=== PATIENT | female | born 1960 | race Caucasian/White ===

== ENCOUNTER → 2016-10-23 | Outpatient (CLI) | payer OTHER ==
--- NOTE | 2016-10-25 08:32 | MM ---
Reason for exam: screening (asymptomatic). Last mammogram was performed 1 year and 1 month ago. History: Patient is postmenopausal. Family history of breast cancer in 2 paternal aunts. Benign cyst aspiration of both breasts, 2002. Physical Findings: A clinical breast exam by your physician is recommended on an annual basis and results should be correlated with mammographic findings. MG 3D Screening Mammo W/Cad Bilateral CC and MLO view(s) were taken. Prior study comparison: October 04, 2015, bilateral MG 3d screening mammo w/cad. September 01, 2014, bilateral MG screening mammo w CAD. July 21, 2013, bilateral MG screening mammo w CAD. The breast tissue is heterogeneously dense. This may lower the sensitivity of mammography. There is no discrete abnormality. ASSESSMENT: Negative, BI-RAD 1 RECOMMENDATION: Routine screening mammogram of both breasts in 1 year. Manage patient on a clinical basis, right breast pain.
== END | disposition home or self-care (01) ==
LOC: RADMAMWWP 09:41
PROVIDERS: ATTEND Obstetrics & Gynecology
DX: Z12.31 Encounter for screening mammogram for malignant neoplasm of breast (principal); Z80.3 Family history of malignant neoplasm of breast
CPT/HCPCS: 77063; G0202

== ENCOUNTER → 2017-03-01 | Outpatient (CLI) | payer OTHER ==
--- NOTE | 2017-03-01 10:07 | BD ---
EXAMINATION TYPE: MG DEXA axial skeleton. DATE OF EXAM: 03/01/2017 COMPARISON: 10.05.2014 CLINICAL HISTORY: 56 YR OLD FEMALE....ICD-10 CODE: M89.9 DISORDER OF BONE Height: 66 Weight: 157 FRAX RISK QUESTIONS: Alcohol (3 or more units per day): NO Family History (Parent hip fracture): UNKNOWN Glucocorticoids (More than 3mos): NO (Ex: prednisone, prednisolone, methylprednisolone, dexamethasone, and hydrocortisone). History of Fracture in Adulthood: NO Secondary Osteoporosis: NO 1. Type 1 Diabetes: NO 2. Hyperthyroidism: NI 3. Menopause before 45: NO 4. Malnutrition: NO 5. Chronic liver disease: NO Rheumatoid Arthritis: NO Current Tobacco Use: NO RISK FACTORS HISTORY OF: Family History of Osteoporosis: UNKNOWN Active: YES Diet low in dairy products/other sources of calcium: SOMEWHAT LOW Postmenopausal woman: YES AT AGE 50 YRS OLD Hyperparathyroidism: NO Adrenal Insufficiency: NO MEDICATIONS: Additional Medications: CALTRATE PLUS D, REFLUX MEDS, CHOLESTEROL... Additional History: NONE TO NOTE EXAM MEASUREMENTS: Bone mineral densitometry was performed using the [email or web address] System. Bone mineral density as measured about the Lumbar spine is: ----- L1-L4(G/cm2): 1.176 T Score Values are as follows: ----- L1: 0.4 ----- L2: 0.1 ----- L3: 0.0 ----- L4: -0.7 ----- L1-L4: 0.0 Bone mineral density has: Decreased -3.1% since study of: 10.05.2014 Bone mineral density about the R hip (g/cm2): 0.854 Bone mineral density about the L hip (g/cm2): 0.916 T Score values are as follows: -----R Neck: -1.9 -----L Neck: -1.6 -----R Total: -1.2 -----L Total: -0.7 Bone mineral density has: Decreased -1.0% since study of: 10.05.2014 FRAX%'S: THERE IS A 8.6% CHANCE OF A MAJOR OSTEOPOROTIC FX AND A 1.0% FOR HIP FX....PROBABILITY OF FX IN 10 YRS TIME IMPRESSION: Osteopenia (T Score between -2.5 and -1 as noted by T score values There is slightly increased risk of fracture and the patient may be considered for treatment. Re-Screen 2-5 years. NOTE: T-SCORE=SD OF THE YOUNG ADULT MEAN.
== END | disposition home or self-care (01) ==
LOC: RADBDWWP 09:18
PROVIDERS: ATTEND Obstetrics & Gynecology
DX: M85.80 Other specified disorders of bone density and structure, unspecified site (principal)
CPT/HCPCS: 77080

== ENCOUNTER → 2017-05-10 | Outpatient (CLI) | payer OTHER ==
--- NOTE | 2017-05-11 04:38 | MR ---
EXAMINATION TYPE: MR knee LT wo con DATE OF EXAM: 05/10/2017 COMPARISON: Outside left knee x-ray April 24, 2017. HISTORY: Left knee pain x 3 mos, no trauma per patient. TECHNIQUE: Multiplanar, multisequence images of the knee is performed without IV contrast. FINDINGS: MEDIAL MENISCUS: Slight medial extrusion of the medial meniscus as seen on coronal images. Anterior h orn is intact without tear. There is fraying of posterior margin with oblique increased signal extend ing to inferior articular surface seen on sagittal image 25. LATERAL MENISCUS: Anterior and posterior horns are intact without tear. CRUCIATE LIGAMENTS: The anterior and posterior cruciate ligaments are intact and unremarkable. COLLATERAL LIGAMENTS: The medial collateral ligament and lateral collateral ligament complex are inta ct. Mild fluid signal surrounds the medial collateral ligament. EXTENSOR MECHANISM: Visualized quadriceps and patellar tendons are intact. EFFUSION: There is fairly moderate suprapatellar joint effusion. POPLITEAL CYST: There are small to moderate size popliteal/santizo cyst measuring 5.0 cm long axis sagi ttal image 22. TRICOMPARTMENT SPACES: There is moderate to advanced joint space loss patellofemoral compartment most prominent inferiorly. Mild joint space loss lateral and medial tibial femoral compartment is seen. N o significant spurring is present. CARTILAGE: There is some thinning of the articular cartilage along the medial posterior facet of the patellar pole. No full-thickness cartilaginous loss is present. BONE MARROW SIGNAL: No focal abnormal marrow signal is appreciated. OTHER: No additional significant abnormality is appreciated. IMPRESSION: 1. Oblique full thickness tear posterior horn medial meniscus. 2. Mild MCL sprain injury. 3. Moderate-sized suprapatellar joint effusion. 4. Mbegx-gc-gwggtrvu sized popliteal cyst. 5. Moderate to severe patellofemoral compartment joint space loss.
== END | disposition home or self-care (01) ==
LOC: RADMRIMAIN 14:58
PROVIDERS: ATTEND Orthopaedic Surgery
DX: S83.242A Other tear of medial meniscus, current injury, left knee, initial encounter (principal); S83.412A Sprain of medial collateral ligament of left knee, initial encounter; M71.22 Synovial cyst of popliteal space [Baker], left knee

== ENCOUNTER → 2017-06-20 | Outpatient (CLI) | payer OTHER ==
[2017-06-20 10:40] LABS: Basophils % (A) 1 %; Eosinophils # (A) 0.2 k/uL (0-0.7); Eosinophils % (A) 3 %; HCT 39.3 % (34.0-46.0); Lymphocytes # (A) 1.6 k/uL (1.0-4.8); Lymphocytes % (A) 25 %; MCH 29.5 pg (25.0-35.0); MCHC 33.2 g/dL (31.0-37.0); MCV 88.8 fL (80.0-100.0); Mean Platelet Volume 7.4; Monocytes # (A) 0.3 k/uL (0-1.0); Monocytes % (A) 5 %; Neutrophils # (A) 4.1 k/uL (1.3-7.7); Neutrophils % (A) 66 %; Platelet Count 244 k/uL (150-450); RBC 4.42 m/uL (3.80-5.40); RDW 13.4 % (11.5-15.5); WBC 6.2 k/uL (3.8-10.6)
[2017-06-20 10:48] LABS: Potassium 4.6 mmol/L (3.5-5.1)
== END | disposition home or self-care (01) ==
LOC: LABPAT 09:43
PROVIDERS: ATTEND Orthopaedic Surgery
DX: Z01.812 Encounter for preprocedural laboratory examination (principal); Z01.818 Encounter for other preprocedural examination; M23.92 Unspecified internal derangement of left knee
CPT/HCPCS: 36415; 80051; 85025; 93005

== ENCOUNTER 2017-07-05 10:14 | Day surgery (SDC) | payer OTHER ==
[2017-07-02 10:09] VITALS: BMI 28.0
--- NOTE | 2017-07-04 14:46 | HP ---
HISTORY AND PHYSICAL DATE OF SERVICE: 07/05/2017 Gina Kohli is a 57-year-old patient seen with progressive left knee pain. Treatment options were discussed. She elected to proceed with arthroscopy. Consent was obtained. PAST MEDICAL HISTORY: Hyperlipidemia. PAST SURGICAL HISTORY: Right shoulder arthroscopy, tubal ligation. DAILY MEDICATIONS: 1. Atorvastatin. 2. Gnqj-ccv-bmglztd vitamins. ALLERGIES: Are KEFLEX, CLINDAMYCIN, SULFA, BACTRIM. SOCIAL HISTORY: Patient denies current tobacco use. PHYSICAL EVALUATION OF THE LEFT KNEE: Her range of motion is 0 to 130 degrees. She has a mild effusion. There is tenderness along the medial joint line. Positive medial Denzel's. Ligaments are stable. Hip rotation is without pain. Distal neurovascular exam is intact. RADIOGRAPHS OF THE LEFT KNEE: Revealed mild osteoarthritis. An MRI of the left knee revealed medial meniscal tear, joint effusion and osteoarthritis. IMPRESSION: 1. Internal derangement, left knee with medial meniscal tear. 2. Left knee osteoarthritis. 3. Hyperlipidemia. PLAN: Left knee arthroscopy with partial meniscectomy and debridement. MMODL / IJN: [id number] /
[~2017-07-05 10:14] MED LIST: DEXAMETHASONE SOD PHOSPHATE 10 MG/ML 1 ML VIAL IV ONE; HYDROmorphone 0.5 MG/0.5 ML SYRINGE IVP PRN; LACTATED RINGERS 1,000 ML IV SCH; MIDAZOLAM 2 MG/2 ML VIAL IV PRN; MORPHINE SULFATE 4 MG/ML SYRINGE IV PRN; ONDANSETRON 4 MG/2 ML VIAL IVP ONE; VANCOMYCIN 1,000 MG in SODIUM CHLORIDE 0.9% 250 ML IVPB ONE
[2017-07-05] MEDS ORDERED: LIDOCAINE 1% 20 ML VIAL (10MG/ML) FOR IV START INTRADERMA ONE (10:48)
[2017-07-05] MEDS ORDERED: LIDOCAINE 1% INJ 10MG/ML (20 ML MDV) ONE (12:11)
[2017-07-05] MEDS ORDERED: BUPIVACAINE (PF) 0.25% 30 ML VIAL INTRAARTIC ONE (12:11)
[2017-07-05] MEDS ORDERED: SUCCINYLCHOLINE CHLORIDE 100 MG/5 ML SYR IV ONE (12:11)
[2017-07-05] MEDS ORDERED: fentaNYL (PF) 50 MCG/ML 2 ML AMP ONE (12:11)
[2017-07-05] MEDS ORDERED: MIDAZOLAM 2 MG/2 ML VIAL ONE (12:11)
[2017-07-05] MEDS ORDERED: PROPOFOL 10 MG/ML 20 ML VIAL IV ONE (12:11)
[2017-07-05 13:05] VITALS: TEMP 98
--- NOTE | 2017-07-05 13:07 | P.OP ---
Date of Procedure: 07/05/17 Preoperative Diagnosis: Internal derangement left knee Postoperative Diagnosis: 1. Tear medial and lateral meniscus left knee 2. Grade 2 chondromalacia medial femoral condyle left knee 3. Grade 1 chondromalacia patella left knee 4. Reactive synovitis medial and suprapatellar compartments left knee Procedure(s) Performed: 1. Arthroscopic partial medial and lateral meniscectomy left knee 2. Arthroscopic chondroplasty medial femoral condyle left knee 3. Arthroscopic chondroplasty patella left knee 4. Arthroscopic partial synovectomy medial and suprapatellar compartments left knee Anesthesia: YARAA, local Surgeon: Brandin Mckeon Estimated Blood Loss (ml): 15 Pathology: none sent Condition: stable Disposition: PACU Indications for Procedure: 57-year-old patient seen with progressive left knee pain. After having treatment options discussed, she elected to to proceed with arthroscopy Operative Findings: see description of procedure Description of Procedure: Patient was taken to the operative suite. Patient underwent a general anesthetic by the department of anesthesia. Patient was given preoperative antibiotics. The left lower extremity was placed in a well-padded arthroscopic leg zavala. The left leg was prepped and draped in the normal sterile orthopedic fashion. A lateral parapatellar and suprapatellar incision was made. Trochars were inserted. Arthroscopy was initiated. Suprapatellar pouch revealed diffuse thick reactive synovitis. The patellofemoral joint appeared to articulate congruently. There with grade 1 chondromalacia with some small osteochondral tears present. The scope was guided into the medial gutter. No loose bodies or plica were identified. The scope was then guided into the medial compartment. A medial parapatellar incision was made. Trocar inserted followed by probe. There was a complex tear involving the posterior horn of the medial meniscus. There were grade 2 chondromalacia changes of the medial femoral condyle with some osteochondral tears present. There was reactive synovitis anteriorly. I performed a partial medial meniscectomy down to stable tissue. I performed a chondroplasty of the medial femoral condyle down to stable tissue. I performed a partial synovectomy. The residual meniscus was found to be stable as was the residual osteochondral surface of the medial femoral condyle. Scope and probe were then guided into the intercondylar notch. Cruciates were identified, probed and found to be stable. The scope and probe were then guided into lateral compartment. There was some superficial tearing noted of the midbody lateral meniscus. There was no evidence for chondromalacia osteochondral deficits involving the lateral compartment. There was no synovitis present. I performed a partial lateral meniscectomy down to stable tissue. The residual meniscus was stable. The scope was in guided back into the suprapatellar compartment. I introduced a motorized shaver into the super patellar compartment. I debrided some piecemeal fragments of meniscus I encountered. I performed a chondroplasty of the patella down to stable tissue. I performed a partial synovectomy. Shaver was removed. Instruments were now removed from the joint. The joint was infiltrated with .25% Marcaine. Steri-Strips were applied to the portal sites. Sterile dressings were applied. The patient was placed into a SYDNIE hose. No tourniquet was utilized. The patient was awakened, transferred to a bed and taken to recovery stable satisfactory condition.
[2017-07-05 14:02] VITALS: RESP 18
[2017-07-05] MEDS ORDERED: traMADol 50 MG TAB PO ONE (14:20)
[2017-07-05 15:26] VITALS: BP 117/57; PULSE 72
== END 2017-07-05 15:36 | disposition home or self-care (01) ==
LOC: OR 10:14
PROVIDERS: ATTEND Orthopaedic Surgery
DX: M23.362 Other meniscus derangements, other lateral meniscus, left knee (principal); M23.322 Other meniscus derangements, posterior horn of medial meniscus, left knee; E78.5 Hyperlipidemia, unspecified; M22.42 Chondromalacia patellae, left knee; M17.12 Unilateral primary osteoarthritis, left knee; M65.862 Other synovitis and tenosynovitis, left lower leg; Z79.899 Other long term (current) drug therapy; Z88.1 Allergy status to other antibiotic agents; Z88.2 Allergy status to sulfonamides
CPT/HCPCS: 29880; J2250; J3370; J1100; J2405; J2001; J3010; J0330; J2704; J1170

== ENCOUNTER → 2017-08-23 | Outpatient (CLI) | payer OTHER ==
[2017-08-23 10:53] LABS: Basophils % (A) 1 %; Eosinophils # (A) 0.1 k/uL (0-0.7); Eosinophils % (A) 3 %; HCT 41.3 % (34.0-46.0); HGB 13.5 gm/dL (11.4-16.0); Lymphocytes # (A) 1.6 k/uL (1.0-4.8); Lymphocytes % (A) 40 %; MCH 29.8 pg (25.0-35.0); MCHC 32.7 g/dL (31.0-37.0); MCV 91.3 fL (80.0-100.0); Mean Platelet Volume 6.8; Monocytes # (A) 0.2 k/uL (0-1.0); Monocytes % (A) 5 %; Neutrophils # (A) 1.9 k/uL (1.3-7.7); Neutrophils % (A) 49 %; Platelet Count 226 k/uL (150-450); RBC 4.52 m/uL (3.80-5.40); RDW 13.7 % (11.5-15.5)
[2017-08-23 11:11] LABS: Albumin 4.3 g/dL (3.5-5.0); Calcium 9.1 mg/dL (8.4-10.2); Potassium 4.6 mmol/L (3.5-5.1); Total Bilirubin 0.5 mg/dL (0.2-1.3); Total Protein 6.7 g/dL (6.3-8.2)
== END | disposition home or self-care (01) ==
LOC: LABWHC1 10:08
PROVIDERS: ATTEND Family Medicine
DX: E78.5 Hyperlipidemia, unspecified (principal)
CPT/HCPCS: 36415; 80053; 80061; 85025

== ENCOUNTER → 2017-11-01 | Outpatient (CLI) | payer OTHER ==
--- NOTE | 2017-11-02 11:11 | MM ---
Reason for exam: screening (asymptomatic). Last mammogram was performed 1 year ago. History: Patient is postmenopausal. Family history of breast cancer in 2 paternal aunts. Benign cyst aspiration of both breasts, 2002. Physical Findings: A clinical breast exam by your physician is recommended on an annual basis and results should be correlated with mammographic findings. MG 3D Screening Mammo W/Cad Bilateral CC and MLO view(s) were taken. Prior study comparison: October 23, 2016, bilateral MG 3d screening mammo w/cad. October 04, 2015, bilateral MG 3d screening mammo w/cad. The breast tissue is heterogeneously dense. This may lower the sensitivity of mammography. There is no discrete abnormality. No significant changes when compared with prior studies. ASSESSMENT: Negative, BI-RAD 1 RECOMMENDATION: Routine screening mammogram of both breasts in 1 year.
== END | disposition home or self-care (01) ==
LOC: RADMAMWWP 16:06
PROVIDERS: ATTEND Obstetrics & Gynecology
DX: Z12.31 Encounter for screening mammogram for malignant neoplasm of breast (principal)
CPT/HCPCS: 77063; 77067

== ENCOUNTER → 2018-02-07 | Outpatient (CLI) | payer OTHER ==
[2018-02-07 11:12] LABS: Basophils % (A) 1 %; Eosinophils # (A) 0.3 k/uL (0-0.7); Eosinophils % (A) 4 %; HCT 39.6 % (34.0-46.0); HGB 12.7 gm/dL (11.4-16.0); Lymphocytes # (A) 1.7 k/uL (1.0-4.8); Lymphocytes % (A) 23 %; MCH 29.3 pg (25.0-35.0); MCHC 32.1 g/dL (31.0-37.0); MCV 91.2 fL (80.0-100.0); Mean Platelet Volume 7.4; Monocytes # (A) 0.4 k/uL (0-1.0); Monocytes % (A) 6 %; Neutrophils # (A) 4.7 k/uL (1.3-7.7); Neutrophils % (A) 65 %; Platelet Count 206 k/uL (150-450); RBC 4.34 m/uL (3.80-5.40); RDW 13.2 % (11.5-15.5); WBC 7.2 k/uL (3.8-10.6)
[2018-02-07 16:08] LABS: Albumin 4.4 g/dL (3.80-4.90); Albumin/Globulin Ratio 2.59 (1.20-2.10); Anion Gap 8.6 mmol/L (4.00-12.00); Calcium 8.6 mg/dL (8.7-10.3); Carbon Dioxide 25.4 mmol/L (21.6-31.8); Globulin 1.7 g/dL (1.6-3.3); LDL Cholesterol,Calculated 92.2 mg/dL (0.0-131.0); Potassium 4.2 mmol/L (3.5-5.5); Total Bilirubin 0.5 mg/dL (0.3-1.2); Total Protein 6.1 g/dL (6.2-8.2); VLDL Calculation 13.8 mg/dL (5.00-40.00)
== END | disposition home or self-care (01) ==
LOC: LABWHC1 10:08
PROVIDERS: ATTEND Family Medicine
DX: Z00.00 Encounter for general adult medical examination without abnormal findings (principal); E78.00 Pure hypercholesterolemia, unspecified
CPT/HCPCS: 36415; 80053; 80061; 84443; 85025

== ENCOUNTER → 2018-10-08 | Outpatient (CLI) | payer OTHER ==
[2018-10-08 11:24] LABS: Basophils % (A) 1 %; Eosinophils # (A) 0.2 k/uL (0-0.7); Eosinophils % (A) 5 %; HCT 38.9 % (34.0-46.0); HGB 13.1 gm/dL (11.4-16.0); Lymphocytes # (A) 1.8 k/uL (1.0-4.8); Lymphocytes % (A) 36 %; MCH 30.9 pg (25.0-35.0); MCHC 33.8 g/dL (31.0-37.0); MCV 91.4 fL (80.0-100.0); Mean Platelet Volume 7.3; Monocytes # (A) 0.3 k/uL (0-1.0); Monocytes % (A) 6 %; Neutrophils # (A) 2.5 k/uL (1.3-7.7); Neutrophils % (A) 50 %; Platelet Count 187 k/uL (150-450); RBC 4.25 m/uL (3.80-5.40); RDW 13.6 % (11.5-15.5); WBC 4.9 k/uL (3.8-10.6)
[2018-10-08 15:37] LABS: African American GFR (CKD) 81.1 (60.0-200.0); Albumin 4.3 g/dL (3.80-4.90); Albumin/Globulin Ratio 2.53 (1.60-3.17); Anion Gap 5.8 mmol/L (4.00-12.00); BUN/Creat Ratio 11.11 Ratio (12.00-20.00); Carbon Dioxide 28.2 mmol/L (21.6-31.8); Chol/HDL Ratio 3.38; Globulin 1.7 g/dL (1.6-3.3); LDL Cholesterol,Calculated 87.4 mg/dL (0.0-131.0); Potassium 4.3 mmol/L (3.5-5.5); Total Bilirubin 0.6 mg/dL (0.3-1.2); VLDL Calculation 19.6 mg/dL (5.00-40.00)
== END | disposition home or self-care (01) ==
LOC: LABWHC1 10:06
PROVIDERS: ATTEND Physician Assistant Medical
DX: Z00.00 Encounter for general adult medical examination without abnormal findings (principal); E78.5 Hyperlipidemia, unspecified
CPT/HCPCS: 36415; 80053; 80061; 84443; 85025

== ENCOUNTER → 2019-08-05 | Outpatient (CLI) | payer OTHER ==
--- NOTE | 2019-08-05 16:14 | CT ---
EXAMINATION TYPE: CT pelvis w con DATE OF EXAM: 08/05/2019 COMPARISON: HISTORY: Pelvic mass CT DLP: 907.2 mGycm Automated exposure control for dose reduction was used. CONTRAST: Performed with IV Contrast, patient injected with 100 mL of Isovue 300. Contrast enhanced CT of the p sage was performed. GI contrast was administered. FINDINGS: Partially imaged anny hepatis region demonstrates adenopathy measuring 1.3 cm and 1.7 cm. Additional lymph node noted measuring 1.[address] of the abdomen and pelvis is advised. There is evidence of bowel left para-aortic adenopathy with lymph nodes measuring 1.6 and 1.5 cm. Low left para-aortic adenopathy noted as well with multiple enlarged lymph nodes noted to measure up to 1.6 cm. At the level of the aortic bifurcation there is abnormal adenopathy measuring 2.3 and 1.3 cm. There is a left-sided internal and external iliac adenopathy measuring 2.3 cm and 2.1 cm was 5.4 cm respectively. Left inguinal adenopathy measuring 2.8 cm as well as 6.6 cm. Visualized kidneys are free of solid mass. Spleen is not enlarged. The abdominal aorta is of normal c aliber. Uterus and ovaries are grossly unremarkable. Sigmoid diverticulosis without diverticulitis. IMPRESSION: NONSPECIFIC ADENOPATHY DISCUSSED ABOVE.
== END | disposition home or self-care (01) ==
LOC: RADCTMAIN 13:50
PROVIDERS: ATTEND Surgery
DX: R59.9 Enlarged lymph nodes, unspecified (principal); K40.91 Unilateral inguinal hernia, without obstruction or gangrene, recurrent
CPT/HCPCS: 72193; Q9967

== ENCOUNTER 2019-08-11 09:11 | Day surgery (SDC) | payer OTHER ==
[2019-08-08 10:48] VITALS: BMI 29.0
[~2019-08-11 09:11] MED LIST changes: +HEPARIN SODIUM,PORCINE 5,000 UNIT/ML 1 ML VIAL SQ ONE; -MORPHINE SULFATE 4 MG/ML SYRINGE IV PRN; +Pre Op ABX Message 1 EACH MISC MISCELLANE ONE; +SCOPOLAMINE 1.5MG/72HR PATCH TRANSDERM ONE; -VANCOMYCIN 1,000 MG in SODIUM CHLORIDE 0.9% 250 ML IVPB ONE
[2019-08-11] MEDS ORDERED: ONDANSETRON 4 MG/2 ML VIAL ONE (09:50)
[2019-08-11] MEDS ORDERED: HEPARIN SODIUM,PORCINE 5,000 UNIT/ML 1 ML VIAL ONE (09:51)
--- NOTE | 2019-08-11 10:36 | P.GSHP ---
History of Present Illness H&P Date: 08/11/19 Chief Complaint: Lymphadenopathy This a 5-year-old female who presents today for excision of left inguinal lymph node. Patient is developed lymphadenopathy. Past Medical History Past Medical History: Cancer, GERD/Reflux, Hyperlipidemia, Osteoarthritis (OA) Additional Past Medical History / Comment(s): hx. basal cancer leg, seasonal allergies History of Any Multi-Drug Resistant Organisms: None Reported Past Surgical History: Orthopedic Surgery, Tubal Ligation Additional Past Surgical History / Comment(s): arthroscopy left knee, right rotator cuff repair,varicose vein ligation Past Anesthesia/Blood Transfusion Reactions: No Reported Reaction Smoking Status: Never smoker Medications and Allergies Home Medications Medication Instructions Recorded Confirmed Type Atorvastatin [Lipitor] 20 mg PO HS 07/02/17 08/08/19 History Esomeprazole Magnesium [NexIUM 20 mg PO Q3D 07/02/17 08/08/19 History 24Hr] Allergies Allergy/AdvReac Type Severity Reaction Status Date / Time cephalexin [From Keflex] AdvReac Rash/Hives Verified 08/11/19 09:39 clindamycin AdvReac Rash/Hives Verified 08/11/19 09:39 sulfamethoxazole AdvReac Rash/Hives Verified 08/11/19 09:39 trimethoprim [From Bactrim] AdvReac Rash/Hives Verified 08/11/19 09:39 Surgical - Exam Vital Signs Temp Pulse Resp BP Pulse Ox 98.9 F 76 18 109/61 96 08/11/19 09:48 08/11/19 09:48 08/11/19 09:48 08/11/19 09:48 08/11/19 09:48 - General well developed, well nourished, no distress - Eyes PERRL - ENT normal pinna - Neck no masses - Respiratory normal expansion - Cardiovascular Rhythm: regular - Abdomen Large inguinal lymph nodes on left groin Abdomen: soft, non tender Assessment and Plan Assessment: Lymphadenopathy. We'll perform left inguinal lymph node biopsy
[2019-08-11] MEDS ORDERED: LIDOCAINE 1% (10MG/ML) FOR IV START INTRADERMA ONE (10:40)
[2019-08-11] MEDS ORDERED: KETAMINE 10 MG/ML 20 ML VIAL ONE (11:08)
[2019-08-11] MEDS ORDERED: KETOROLAC 30 MG/ML 1 ML VIAL ONE (11:08)
[2019-08-11] MEDS ORDERED: PROPOFOL 10 MG/ML 20 ML VIAL IV ONE (11:08)
[2019-08-11] MEDS ORDERED: MIDAZOLAM 2 MG/2 ML VIAL ONE (11:08)
[2019-08-11] MEDS ORDERED: fentaNYL (PF) 50 MCG/ML 2 ML AMP ONE (11:08)
[2019-08-11] MEDS ORDERED: LIDOCAINE 1% INJ 10MG/ML (20 ML MDV) ONE (11:08)
[2019-08-11 12:10] VITALS: TEMP 97.5
[2019-08-11 12:18] VITALS: RESP 16
[2019-08-11 13:55] VITALS: BP 122/70; PULSE 65
--- NOTE | 2019-08-11 16:10 | P.OP ---
Date of Procedure: 08/11/19 Preoperative Diagnosis: Left inguinal lymphadenopathy Postoperative Diagnosis: Left inguinal lymphadenopathy Procedure(s) Performed: Excisional biopsy of left inguinal lymph node Anesthesia: ADALBERTO Surgeon: Rene Masterson Estimated Blood Loss (ml): 10 Pathology: other Condition: stable Disposition: PACU (Lymph node) Description of Procedure: Patient's placed the operative table in supine position. She received general anesthesia. Her left groin was prepped and draped usual sterile fashion. The skin was incised at the lymph node. Using blunt and sharp dissection with cautery the subcu tissue divided and the lymph node was dissected free. Lymph node measured approximately 8 x 4 x 3 cm The specimen pathology. The Bovie was used for hemostasis. A BELA drains placed the limb brought through separate stab incision. The deep layers closed 0 Vicryl. Skin was closed with 3-0 Monocryl. Dermabond was applied. Patient top she will was sent to recovery room in stable condition.
== END 2019-08-11 14:39 | disposition home or self-care (01) ==
LOC: OR 09:11
PROVIDERS: ATTEND Surgery
DX: R59.0 Localized enlarged lymph nodes (principal); R89.7 Abnormal histological findings in specimens from other organs, systems and tissues; K21.9 Gastro-esophageal reflux disease without esophagitis; E78.5 Hyperlipidemia, unspecified; J30.2 Other seasonal allergic rhinitis; M17.10 Unilateral primary osteoarthritis, unspecified knee; Z85.828 Personal history of other malignant neoplasm of skin; Z98.890 Other specified postprocedural states; Z98.51 Tubal ligation status; Z87.39 Personal history of other diseases of the musculoskeletal system and connective tissue; Z86.79 Personal history of other diseases of the circulatory system; Z79.899 Other long term (current) drug therapy; Z88.1 Allergy status to other antibiotic agents; Z88.2 Allergy status to sulfonamides
CPT/HCPCS: 38500; J2250; J1644; J1100; J2405; J2001; J3010; J1885; J2704

== ENCOUNTER → 2019-09-23 | Outpatient (CLI) | payer OTHER ==
--- NOTE | 2019-09-24 16:09 | BD ---
EXAMINATION TYPE: Axial Bone Density DATE OF EXAM: 09/23/2019 COMPARISON: 03/01/2017 CLINICAL HISTORY: 59-year-old female postmenopausal screening Height: 66.2 IN Weight: 176 LBS RISK FACTORS HISTORY OF: Active: YES Diet low in dairy products/other sources of calcium: YES Postmenopausal woman: AGE 49 MEDICATIONS: Additional Medications: CHOLESTEROL MEDS, IRON, ZINC, MULTI VIT,NEXIUM Additional History: LYMPHOMA AGE 59 EXAM MEASUREMENTS: Bone mineral densitometry was performed using the [employer] System. Bone mineral density as measured about the Lumbar spine is: ----- L1-L4(G/cm2): 1.162 T Score Values are as follows: ----- L2: 0.0 ----- L3: -0.5 ----- L4: -0.2 ----- L1-L4: -0.1 Bone mineral density has: Decreased -0.5% since study of: 03/01/2017 Bone mineral density about the R hip (g/cm2): 0.783 Bone mineral density about the L hip (g/cm2): 0.795 T Score values are as follows: -----R Neck: -1.8 -----L Neck: -1.8 -----R Total: -1.4 -----L Total: -1.4 Bone mineral density has: Decreased -3.1% since study of: 03/01/2017 IMPRESSION: Osteopenia (T Score between -2.5 and -1). There is slightly increased risk of fracture and the patient may be considered for treatment. Re-Screen 2-5 years. NOTE: T-SCORE=SD OF THE YOUNG ADULT MEAN.
--- NOTE | 2019-09-25 11:39 | MM ---
Reason for exam: screening (asymptomatic). Last mammogram was performed 1 year and 11 months ago. History: Patient is postmenopausal. Family history of breast cancer in 2 paternal aunts. Benign cyst aspiration of both breasts, 2002. Physical Findings: A clinical breast exam by your physician is recommended on an annual basis and results should be correlated with mammographic findings. MG 3D Screening Mammo W/Cad Bilateral CC and MLO view(s) were taken. Prior study comparison: November 01, 2017, bilateral MG 3d screening mammo w/cad. October 23, 2016, bilateral MG 3d screening mammo w/cad. The breast tissue is heterogeneously dense. This may lower the sensitivity of mammography. No significant changes when compared with prior studies. ASSESSMENT: Negative, BI-RAD 1 RECOMMENDATION: Routine screening mammogram of both breasts in 1 year.
== END | disposition home or self-care (01) ==
LOC: RADMAMWWP 15:05
PROVIDERS: ATTEND Obstetrics & Gynecology
DX: Z12.31 Encounter for screening mammogram for malignant neoplasm of breast (principal); Z80.3 Family history of malignant neoplasm of breast; M85.80 Other specified disorders of bone density and structure, unspecified site
CPT/HCPCS: 77063; 77067; 77080

== ENCOUNTER → 2019-10-01 | Outpatient (CLI) | payer OTHER ==
--- NOTE | 2019-10-01 16:25 | CT ---
EXAMINATION TYPE: CT chest abdomen w con DATE OF EXAM: 10/01/2019 COMPARISON: CT pelvis August 05, 2019. HISTORY: Mantle cell lymphoma on biopsy left groin region. CT DLP: 700.9 mGycm. Automated Exposure Control for Dose Reduction was Utilized. CONTRAST: CT scan of the thorax and abdomen are performed with oral and with IV Contrast, patient injected with 100ml mL of Isovue 300. FINDINGS: LUNGS: Mild linear atelectasis or scarring in the left lung base. No suspicious nodules or masses billy aterally. There is no pleural effusion or pneumothorax seen. The tracheobronchial tree is patent. MEDIASTINUM: There are no greater than 1 cm hilar or mediastinal lymph nodes. Some scattered prominen t but subcentimeter mediastinal lymph nodes are noted. No cardiomegaly or pericardial effusion is se en. Roughly 1.4 cm lower pole left thyroid nodule axial image 7 warrants follow-up if this is not kn own finding. Few prominent but subcentimeter lymph nodes along the course of the esophagus are noted. LIVER/GB: Liver not enlarged. Gallbladder somewhat contracted on current study. PANCREAS: No significant abnormality is seen. SPLEEN: Spleen also normal in size. ADRENALS: No significant abnormality is seen. KIDNEYS: Symmetrical cortical medullary uptake and excretion without hydronephrosis seen bilaterally. BOWEL: Oral contrast does not reach colonic level evaluation of distal bowel slightly suboptimal. No suspicious small or large bowel dilatation. LYMPH NODES: Abnormal retroperitoneal lymph nodes redemonstrated greatest along the left periaortic r egion. For reference there is 2.6 x 2.0 cm lymph node just past the aortic bifurcation along the left common iliac artery axial image 82.. OSSEOUS STRUCTURES: No significant abnormality is seen. OTHER: Stable Small to moderate-sized fat-containing umbilical hernia axial image 80 redemonstrated. Scattered prominent anny hepatic lymph node image 34 redemonstrated. For reference there is 2.8 x 1. 6 cm lymph node axial image 55 seen unchanged from prior study. IMPRESSION: Abnormal abdominal adenopathy is confirmed as suspected on recent pelvic CT. Nonspecific prominent but subcentimeter lymph nodes in the mediastinum especially along course of the mid to dist al esophagus are noted. No definitive greater than 1 cm thoracic adenopathy. Consider PET/CT correlat ion. Greater than 1 cm lower pole left thyroid nodule warrants thyroid ultrasound follow-up if this is not known finding.
== END | disposition home or self-care (01) ==
LOC: RADCTMAIN 14:55
PROVIDERS: ATTEND Internal Medicine Hematology & Oncology
DX: E04.1 Nontoxic single thyroid nodule (principal); R59.0 Localized enlarged lymph nodes; C83.18 Mantle cell lymphoma, lymph nodes of multiple sites; Z88.2 Allergy status to sulfonamides; Z88.1 Allergy status to other antibiotic agents
CPT/HCPCS: 71260; 74160; Q9967

== ENCOUNTER 2020-03-08 18:33 | Observation (INO) | payer OTHER ==
--- NOTE | 2020-03-08 18:56 | ED ---
General Adult HPI - General Chief complaint: Chest Pain Stated complaint: Anxiety Attack Time Seen by Provider: 03/08/20 18:45 Source: patient Mode of arrival: ambulatory Limitations: no limitations - History of Present Illness Initial comments: Dictation was produced using [employer] dictation software. please excuse any grammatical, word or spelling errors. This patient was cared for during a federal and state declared state of emergency secondary to Covid 19 Chief Complaint: 59-year-old male presents with epigastric and chest pain. History of Present Illness: 59-year-old female for the last 3 weeks she's been having worsening epigastric and chest pain. Patient states that one month ago her unexpectedly. Since that she is been very emotional. She talked to her kids and family about it and was encouraged to come to the emergency department for evaluation. Patient states she's been feeling jittery. Cells been told by friends that she's been having a panic attack. Patient states the squeezing type substernal sensation to her lower sternal area. It radiates laterally. Denies any radiation to the jaws or shoulders. No associated diaphoresis or nausea. The ROS documented in this emergency department record has been reviewed and confirmed by me. Those systems with pertinent positive or negative responses have been documented in the HPI. All other systems are other negative and/or noncontributory. PHYSICAL EXAM: General Impression: Alert and oriented x3, crying HEENT: Normocephalic atraumatic, extra-ocular movements intact, pupils equal and reactive to light bilaterally, mucous membranes moist. Cardiovascular: Heart regular rate and rhythm Chest: Able to complete full sentences, no retractions, no tachypnea Abdomen: abdomen soft, non-tender, non-distended, no organomegaly Musculoskeletal: Pulses present and equal in all extremities, no peripheral edema Motor: no focal deficits noted Neurological: CN II-XII grossly intact, no focal motor or sensory deficits noted Skin: Intact with no visualized rashes Psych: Tearful ED course: 59-year-old female presents with atypical chest pain typical features. Vital Signs upon arrival shows heart rate of 101, rest of vital signs within acceptable limits. Alcohol presentation concerning for Takusubo's cardiomyopathy EKG interpretation: Ventricular rate, normal sinus rhythm,. 124, QRS 92, QTc 445. No MA prolongation, no QTC prolongation, no ST or T-wave changes noted. EKG compared to 06/20/2017 showing no changes. Overall, this EKG is unremarkable Laboratory evaluation obtained. CBC, coag panel, metabolic panel is un remarkable. First troponin negative. Rest of labs unremarkable. Chest x-ray is nonacute. Considering patient's age, comorbidities and history of present illness patient be admitted observation with cardiology consultation and serial troponins. Case was discussed with Dr. Rivera from [facility] group was went except patient's care. Patient ordered for aspirin. - Related Data Home Medications Medication Instructions Recorded Confirmed Atorvastatin [Lipitor] 20 mg PO HS 07/02/17 03/08/20 Ferrous Sulfate [Feosol] 325 mg PO Q48H 03/08/20 03/08/20 L.acidoph,Paracasei, B.lactis 1 cap PO MO 03/08/20 03/08/20 [Probiotic] Multivitamins, Thera [Multivitamin 1 tab PO Q48H 03/08/20 03/08/20 (formulary)] Zinc 50 mg PO DAILY 03/08/20 03/08/20 Allergies Allergy/AdvReac Type Severity Reaction Status Date / Time cephalexin [From Keflex] AdvReac Rash/Hives Verified 03/08/20 20:40 clindamycin AdvReac Rash/Hives Verified 03/08/20 20:40 sulfamethoxazole AdvReac Rash/Hives Verified 03/08/20 20:40 trimethoprim [From Bactrim] AdvReac Rash/Hives Verified 03/08/20 20:40 Review of Systems ROS Statement: Those systems with pertinent positive or pertinent negative responses have been documented in the HPI. ROS Other: All systems not noted in ROS Statement are negative. Past Medical History Past Medical History: Cancer, GERD/Reflux, Hyperlipidemia, Osteoarthritis (OA) Additional Past Medical History / Comment(s): hx. basal cancer leg, seasonal allergies History of Any Multi-Drug Resistant Organisms: None Reported Past Surgical History: Orthopedic Surgery, Tubal Ligation Additional Past Surgical History / Comment(s): arthroscopy left knee, right rotator cuff repair,varicose vein ligation Past Anesthesia/Blood Transfusion Reactions: No Reported Reaction Past Psychological History: Anxiety Smoking Status: Never smoker Past Alcohol Use History: None Reported Past Drug Use History: None Reported General Exam Limitations: no limitations Course Vital Signs 03/08/20 18:35 Temperature 98.2 F Pulse Rate 101 H Respiratory 18 Rate Blood Pressure 139/67 O2 Sat by Pulse 98 Oximetry Medical Decision Making - Lab Data Result diagrams: 03/08/20 19:04 03/08/20 19:01 Lab Results 03/08/20 03/08/20 03/08/20 Range/Units 19:01 19:01 19:01 WBC (3.8-10.6) k/uL RBC (3.80-5.40) m/uL Hgb (11.4-16.0) gm/dL Hct (34.0-46.0) % MCV (80.0-100.0) fL MCH (25.0-35.0) pg MCHC (31.0-37.0) g/dL RDW (11.5-15.5) % Plt Count (150-450) k/uL MPV Neutrophils % % Lymphocytes % % Monocytes % % Eosinophils % % Basophils % % Neutrophils # (1.3-7.7) k/uL Lymphocytes # (1.0-4.8) k/uL Monocytes # (0-1.0) k/uL Eosinophils # (0-0.7) k/uL Basophils # (0-0.2) k/uL PT 10.2 (9.0-12.0) sec INR 1.0 (<1.2) APTT 20.4 L (22.0-30.0) sec Sodium 140 (137-145) mmol/L Potassium 3.5 (3.5-5.1) mmol/L Chloride 103 (98-107) mmol/L Carbon Dioxide 26 (22-30) mmol/L Anion Gap 11 mmol/L BUN 11 (7-17) mg/dL Creatinine 0.97 (0.52-1.04) mg/dL Est GFR (CKD-EPI)AfAm 74 (>60 ml/min/1.73 sqM) Est GFR (CKD-EPI)NonAf 64 (>60 ml/min/1.73 sqM) Glucose 115 H (74-99) mg/dL Calcium 9.2 (8.4-10.2) mg/dL Magnesium 2.2 (1.6-2.3) mg/dL Total Bilirubin 0.5 (0.2-1.3) mg/dL AST 21 (14-36) U/L ALT 14 (4-34) U/L Alkaline Phosphatase 48 (38-126) U/L Troponin I <0.012 (0.000-0.034) ng/mL Total Protein 7.3 (6.3-8.2) g/dL Albumin 4.7 (3.5-5.0) g/dL Lipase 175 (23-300) U/L 03/08/20 Range/Units 19:04 WBC 7.6 (3.8-10.6) k/uL RBC 4.49 (3.80-5.40) m/uL Hgb 13.9 (11.4-16.0) gm/dL Hct 40.7 (34.0-46.0) % MCV 90.6 (80.0-100.0) fL MCH 30.9 (25.0-35.0) pg MCHC 34.2 (31.0-37.0) g/dL RDW 13.5 (11.5-15.5) % Plt Count 223 (150-450) k/uL MPV 7.6 Neutrophils % 54 % Lymphocytes % 34 % Monocytes % 6 % Eosinophils % 3 % Basophils % 1 % Neutrophils # 4.1 (1.3-7.7) k/uL Lymphocytes # 2.6 (1.0-4.8) k/uL Monocytes # 0.5 (0-1.0) k/uL Eosinophils # 0.2 (0-0.7) k/uL Basophils # 0.1 (0-0.2) k/uL PT (9.0-12.0) sec INR (<1.2) APTT (22.0-30.0) sec Sodium (137-145) mmol/L Potassium (3.5-5.1) mmol/L Chloride (98-107) mmol/L Carbon Dioxide (22-30) mmol/L Anion Gap mmol/L BUN (7-17) mg/dL Creatinine (0.52-1.04) mg/dL Est GFR (CKD-EPI)AfAm (>60 ml/min/1.73 sqM) Est GFR (CKD-EPI)NonAf (>60 ml/min/1.73 sqM) Glucose (74-99) mg/dL Calcium (8.4-10.2) mg/dL Magnesium (1.6-2.3) mg/dL Total Bilirubin (0.2-1.3) mg/dL AST (14-36) U/L ALT (4-34) U/L Alkaline Phosphatase (38-126) U/L Troponin I (0.000-0.034) ng/mL Total Protein (6.3-8.2) g/dL Albumin (3.5-5.0) g/dL Lipase (23-300) U/L Disposition Clinical Impression: Chest pain Disposition: ADMITTED IP TO THIS HOSP Condition: Fair Referrals: Ash Christy DO [Primary Care Provider] - 1-2 days Decision Time: 20:47
[2020-03-08 19:12] LABS: Basophils # (A) 0.1 k/uL (0-0.2); Basophils % (A) 1 %; Eosinophils # (A) 0.2 k/uL (0-0.7); Eosinophils % (A) 3 %; HCT 40.7 % (34.0-46.0); HGB 13.9 gm/dL (11.4-16.0); Lymphocytes # (A) 2.6 k/uL (1.0-4.8); Lymphocytes % (A) 34 %; MCH 30.9 pg (25.0-35.0); MCHC 34.2 g/dL (31.0-37.0); MCV 90.6 fL (80.0-100.0); Mean Platelet Volume 7.6; Monocytes # (A) 0.5 k/uL (0-1.0); Monocytes % (A) 6 %; Neutrophils # (A) 4.1 k/uL (1.3-7.7); Neutrophils % (A) 54 %; Platelet Count 223 k/uL (150-450); RBC 4.49 m/uL (3.80-5.40); RDW 13.5 % (11.5-15.5); WBC 7.6 k/uL (3.8-10.6)
[2020-03-08 19:26] LABS: Albumin 4.7 g/dL (3.5-5.0); Calcium 9.2 mg/dL (8.4-10.2); Magnesium 2.2 mg/dL (1.6-2.3); Potassium 3.5 mmol/L (3.5-5.1); Total Bilirubin 0.5 mg/dL (0.2-1.3); Total Protein 7.3 g/dL (6.3-8.2)
[2020-03-08 19:29] LABS: Prothrombin Time 10.2 sec (9.0-12.0)
[2020-03-08 19:37] LABS: Partial Thromboplastin Time 20.4 sec (22.0-30.0)
--- NOTE | 2020-03-08 20:04 | XR ---
EXAMINATION TYPE: XR chest 2V DATE OF EXAM: 03/08/2020 COMPARISON: NONE HISTORY: Chest pain TECHNIQUE: FINDINGS: Heart and mediastinum are normal. Lungs are clear. Diaphragm is normal. Bony thorax is inta ct. IMPRESSION: Normal chest.
[2020-03-08] MEDS ORDERED: ASPIRIN 81 MG PO STA (20:44)
[2020-03-08] MEDS ORDERED: NITROGLYCERIN SL TABS 0.4 MG TAB SUBLINGUAL PRN (20:44)
[2020-03-08] MEDS ORDERED: LORazepam 1 MG TAB PO PRN (20:45)
[2020-03-08] MEDS ORDERED: ATORVASTATIN 20 MG TAB PO SCH (21:00)
[2020-03-08] MEDS: HEPARIN SODIUM,PORCINE 5,000 UNIT/ML 1 ML VIAL SQ SCH (23:28)
--- NOTE | 2020-03-08 23:39 | P.HPIM ---
History of Present Illness H&P Date: 03/08/20 Chief Complaint: chest pain 59 year old female with hyperlipidemia patient denies any history of CAD, DM, hypertension , or smoking, she does not know about her parents if they had heart disease, but all her brothers and sisters are in good health patient has lost her suddenly a month ago , due to CAD. since then she has been grieving with overwhelming emotions. she lives alone now, but her kids are around the area. over past 2 weeks , she is experiencing frequent episodes of, at times, constant chest pain , over upper abdomen radiating to mid chest , vague dull pain , at times sharp, 5-8/10 in severity , not related to any type of activity , and happens randomly during the day, with heightened emotions and crying. she went to her doctor , who suspected costochondritis, and prescribed some steroids with not much benefit. she also reports feeling jittery and emotional all the time. denies any syncope, heart racing, shortness of breath or dizziness. today when she reported her symptoms to her kids, they recommended that she gets evaluated, although they suspect that she is just having anxiety. no recent travel, sick contact, or trauma. no recent unusual physical activity. again denies any smoking, excessive alcohol intake, or illicit drugs. she does not take aspirin at home. she has been experiencing GERD symptoms, and was planning on getting EGD done . in the ED , blood work unremarkable, CXR wnl, EKG NSR. trops negative X2 Review of Systems Pertinent positives as noted in HPI. All other systems were reviewed and are negative Past Medical History Past Medical History: Cancer, GERD/Reflux, Hyperlipidemia, Osteoarthritis (OA) Additional Past Medical History / Comment(s): hx. basal cancer leg, seasonal allergies History of Any Multi-Drug Resistant Organisms: None Reported Past Surgical History: Orthopedic Surgery, Tubal Ligation Additional Past Surgical History / Comment(s): arthroscopy left knee, right rotator cuff repair,varicose vein ligation Past Anesthesia/Blood Transfusion Reactions: No Reported Reaction Past Psychological History: Anxiety Smoking Status: Never smoker Past Alcohol Use History: None Reported Past Drug Use History: None Reported - Past Family History family Family Medical History: No Reported History Medications and Allergies Home Medications Medication Instructions Recorded Confirmed Type Atorvastatin [Lipitor] 20 mg PO HS 07/02/17 03/08/20 History Ferrous Sulfate [Feosol] 325 mg PO Q48H 03/08/20 03/08/20 History L.acidoph,Paracasei, B.lactis 1 cap PO MO 03/08/20 03/08/20 History [Probiotic] Multivitamins, Thera [Multivitamin 1 tab PO Q48H 03/08/20 03/08/20 History (formulary)] Zinc 50 mg PO DAILY 03/08/20 03/08/20 History Allergies Allergy/AdvReac Type Severity Reaction Status Date / Time cephalexin [From Keflex] AdvReac Rash/Hives Verified 03/08/20 20:40 clindamycin AdvReac Rash/Hives Verified 03/08/20 20:40 sulfamethoxazole AdvReac Rash/Hives Verified 03/08/20 20:40 trimethoprim [From Bactrim] AdvReac Rash/Hives Verified 03/08/20 20:40 Physical Exam Vitals: Vital Signs Temp Pulse Resp BP Pulse Ox 03/08/20 18:35 98.2 F 101 H 18 139/67 98 Intake and Output 03/08/20 03/08/20 03/08/20 06:59 14:59 22:59 Other: Weight 77.111 kg Constitutional: No acute distress, conversant, pleasant Eyes: Anicteric sclerae, moist conjunctiva, Pupils equal round reactive to light ENMT: NC/AT Oropharynx clear, no erythema, or exudates Neck: Supple, FROM, no masses, or JVD No carotid bruits No thyromegaly Lungs: Clear to auscultation Clear to percussion Normal respiratory effort, no accessory muscle use Cardiovascular: Heart regular in rate and rhythm, No murmurs, gallops, or rubs No peripheral edema Abdominal: Soft Nontender, no guarding, rebound or rigidity Abdomen moving with respiration Normoactive bowel sounds No hepatomegaly, No splenomegaly No palpable mass No abdominal wall hernia noted Skin: Normal temperature, tone, texture, turgor No induration No subcutaneous nodules No rash, lesions No ulcers Extremities: No digital cyanosis No clubbing Pedal pulses intact and symmetrical Radial pulses intact and symmetrical No calf tenderness Psychiatric: Alert and oriented to person, place and time Appropriate affect fair judgement Neuro Muscles Strength 5/5 in all 4 extremities Sensation to light touch grossly present throughout Cranial nerves II-XII grossly intact No focal sensory deficits Lymphatics: no palpable cervical or supraclavicular , or inguinal lymph nodes Results CBC & Chem 7: 03/08/20 19:04 03/08/20 19:01 Labs: Abnormal Lab Results - Last 24 Hours (Table) 03/08/20 03/08/20 Range/Units 19:01 19:01 APTT 20.4 L (22.0-30.0) sec Glucose 115 H (74-99) mg/dL Assessment and Plan Assessment: atypical chest pain , most likely anxiety related and possible GERD rule out underlying cardiac causes trops negative X2 CXR wnl EKG, NSR blood work unremarkable long history of GERD recent major life changing event , patient lost her suddenly to heart disease. plan observation telemetry monitor cardio consult trend trops ASA resume statin ECHO cardiogram monitor vital signs Ativan for anxiety chronic conditions GERD Hyperlipidemia as above CODE STATUS:full code DVT prophylaxis: heparin sc tid Discussed with: Patient, ER, RN Anticipated length of stay < than [address]: home A total of 70 minutes was spent on the care of this complex patient more than 50% of the time was spent in counseling and care coordination.
[2020-03-09] MEDS: PANTOPRAZOLE 40 MG TABLET PO SCH ×2 (00:15→08:42)
[2020-03-09 05:23] LABS: Basophils % (A) 1 %; Eosinophils # (A) 0.2 k/uL (0-0.7); Eosinophils % (A) 4 %; HCT 35.9 % (34.0-46.0); HGB 12.2 gm/dL (11.4-16.0); Lymphocytes # (A) 2.4 k/uL (1.0-4.8); Lymphocytes % (A) 39 %; MCH 30.9 pg (25.0-35.0); MCHC 33.9 g/dL (31.0-37.0); MCV 91.3 fL (80.0-100.0); Mean Platelet Volume 7.8; Monocytes # (A) 0.4 k/uL (0-1.0); Monocytes % (A) 7 %; Neutrophils # (A) 2.9 k/uL (1.3-7.7); Neutrophils % (A) 48 %; Platelet Count 191 k/uL (150-450); RBC 3.93 m/uL (3.80-5.40); RDW 13.6 % (11.5-15.5)
[2020-03-09] MEDS: HEPARIN SODIUM,PORCINE 5,000 UNIT/ML 1 ML VIAL SQ SCH (08:40)
[2020-03-09] MEDS ORDERED: ZINC SULFATE 220 MG CAP PO SCH (09:00)
[2020-03-09] MEDS ORDERED: ASPIRIN 325 MG TAB PO SCH (09:00)
[2020-03-09 09:44] LABS: African American GFR (CKD) 80.5 (60.0-200.0); Albumin/Globulin Ratio 2.67 (1.60-3.17); Anion Gap 7.7 mmol/L (4.00-12.00); BUN/Creat Ratio 12.22 Ratio (12.00-20.00); Calcium 8.7 mg/dL (8.7-10.3); Carbon Dioxide 26.3 mmol/L (21.6-31.8); Chol/HDL Ratio 2.96; Globulin 1.5 g/dL (1.6-3.3); LDL Cholesterol,Calculated 78.8 mg/dL (0.0-131.0); Non-African American GFR(CKD) 69.5 (60.0-200.0); Potassium 3.9 mmol/L (3.5-5.5); Total Bilirubin 0.5 mg/dL (0.3-1.2); Total Protein 5.5 g/dL (6.2-8.2); VLDL Calculation 11.2 mg/dL (5.00-40.00)
--- NOTE | 2020-03-09 10:05 | P.CRDCN ---
History of Present Illness Consult date: 03/09/20 History of present illness: CHIEF COMPLAINT: Chest pain HISTORY OF PRESENT ILLNESS: This is a 59-year-old female with a past medical history significant for hyperlipidemia and GERD. 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 We have been asked to see the patient in consultation for chest pain. Patient examined this morning at the bedside. Patient is tearful during examination and reports that she lost her easily secondary to heart disease. Patient states she began having chest pain about 2 weeks ago. She d escribes the pain as a pressure sensation in the midsternal region and under both breasts. She states the pressure has remained constant for the last 2 weeks although it does increase and decrease in severity. She denies any other associated symptoms. She does report that the pain seems to get worse when she is crying about the loss of her . She states that she was evaluated by her primary care physician and diagnosed with costochondritis. She was given steroids with little improvement. Patient reports her dad when he was in his 50s. She states that she believes it was due to a heart attack but also states that he was an alcoholic and smoked heavily. DIAGNOSTICS: EKG reveals sinus mechanism with no signs of acute ischemia Chest xray negative for acute process Laboratory data: WBC 6.0. Hemoglobin 12.2. Platelet count 191. Sodium 143. Potassium 3.9. BUN 11. Creatinine 0.9. Troponin negative 3. Current home cardiac medications include Lipitor 20 mg daily REVIEW OF SYSTEMS: At the time of my exam: CONSTITUTIONAL: Denies fever or chills. HEENT: Denies blurred vision, vision changes, or eye pain. Denies hemoptysis CARDIOVASCULAR: Reports mild chest pressure. Denies orthopnea, PND or palpitations RESPIRATORY: No shortness of breath. GASTROINTESTINAL: Denies abdominal pain. Denies nausea or vomiting. HEMATOLOGIC: Denies bleeding disorders. GENITOURINARY: Denies any blood in urine. SKIN: Denies pruitis. Denies rash. PHYSICAL EXAM: VITAL SIGNS: Reviewed. GENERAL: Well-developed in no acute distress. Tearful during examination. HEENT: Head is normocephalic. Pupils are equal, round. Sclerae anicteric. Mucous membranes of the mouth are moist. Neck supple. No JVD or thyromegaly LUNGS: Respirations even and unlabored. Lungs essentially clear to auscultation bilaterally. HEART: Regular rate and rhythm. S1 and S2 heard. No chest wall tenderness upon palpation ABDOMEN: Soft. Nondistended. Nontender. EXTREMITIES: Normal range of motion. No clubbing or cyanosis. Peripheral p ulses intact. No lower extremity edema NEUROLOGIC: Awake and alert. Oriented x 3. ASSESSMENT: Chest pain, atypical, troponin negative x 3 Hyperlipidemia Family history of coronary artery disease GERD PLAN: An acute coronary event has been ruled out Discontinue aspirin Obtain 2-D echo to assess cardiac structure and function Obtain stress echo to assess for reversible ischemia If stress test is negative and echocardiogram does not reveal any significant abnormalities, the patient may be discharged home today from a cardiac perspective Nurse practitioner note has been reviewed by physician. Signing provider agrees with the documented findings, assessment, and plan of care. Past Medical History Past Medical History: Cancer, GERD/Reflux, Hyperlipidemia, Osteoarthritis (OA) Additional Past Medical History / Comment(s): hx. basal cancer leg, seasonal allergies History of Any Multi-Drug Resistant Organisms: None Reported Past Surgical History: Orthopedic Surgery, Tubal Ligation Additional Past Surgical History / Comment(s): arthroscopy left knee, right rotator cuff repair,varicose vein ligation Past Anesthesia/Blood Transfusion Reactions: No Reported Reaction Past Psychological History: Anxiety Smoking Status: Never smoker Past Alcohol Use History: None Reported Past Drug Use History: None Reported - Past Family History family Family Medical History: No Reported History Medications and Allergies Home Medications Medication Instructions Recorded Confirmed Type Atorvastatin [Lipitor] 20 mg PO HS 07/02/03/08/20 History Ferrous Sulfate [Feosol] 325 mg PO Q48H 03/08/20 03/08/20 History L.acidoph,Paracasei, B.lactis 1 cap PO MO 03/08/20 03/08/20 History [Probiotic] Multivitamins, Thera [Multivitamin 1 tab PO Q48H 03/08/20 03/08/20 History (formulary)] Zinc 50 mg PO DAILY 03/08/20 03/08/20 History Allergies Allergy/AdvReac Type Severity Reaction Status Date / Time cephalexin [From Keflex] AdvReac Rash/Hives Verified 03/08/20 20:40 clindamycin AdvReac Rash/Hives Verified 03/08/20 20:40 sulfamethoxazole AdvReac Rash/Hives Verified 03/08/20 20:40 trimethoprim [From Bactrim] AdvReac Rash/Hives Verified 03/08/20 20:40 Physical Exam Vitals: Vital Signs Temp Pulse Pulse Resp BP BP Pulse Ox 03/09/20 07:50 98.2 F 72 16 120/70 98 03/09/20 02:00 98 F 71 18 120/60 98 03/08/20 21:07 97.9 F 78 18 130/66 99 03/08/20 20:58 97.6 F 76 18 113/52 99 03/08/20 18:35 98.2 F 101 H 18 139/67 98 Intake and Output 03/08/20 03/09/20 03/09/20 22:59 06:59 14:59 Intake Total 540 Balance 540 Intake: Oral 540 Other: Voiding Method Toilet # Voids 2 2 Weight 77.111 kg Results 03/09/20 04:38 03/09/20 04:38 Cardiac Enzymes 03/08/20 03/08/20 03/08/20 Range/Units 19:01 19:01 22:26 AST 21 (14-36) U/L Troponin I <0.012 <0.012 (0.000-0.034) ng/mL 03/09/20 03/09/20 Range/Units 01:47 04:38 AST 18 (14-36) U/L Troponin I <0.012 (0.000-0.034) ng/mL Coagulation 03/08/20 Range/Units 19:01 PT 10.2 (9.0-12.0) sec APTT 20.4 L (22.0-30.0) sec Lipids 03/09/20 Range/Units 04:38 Triglycerides 56.0 (0.0-149.0) mg/dL Cholesterol 136 (0-200) mg/dL HDL Cholesterol 46.0 (40.0-60.0) mg/dL Cholesterol/HDL Ratio 2.96 CBC 03/08/20 03/09/20 Range/Units 19:04 04:38 WBC 7.6 6.0 (3.8-10.6) k/uL RBC 4.49 3.93 (3.80-5.40) m/uL Hgb 13.9 12.2 (11.4-16.0) gm/dL Hct 40.7 35.9 (34.0-46.0) % Plt Count 223 191 (150-450) k/uL Comprehensive Metabolic Panel 03/08/20 03/09/20 Range/Units 19:01 04:38 Sodium 140 143 (137-145) mmol/L Potassium 3.5 3.9 (3.5-5.1) mmol/L Chloride 103 109 (98-107) mmol/L Carbon Dioxide 26 26.3 (22-30) mmol/L BUN 11 11.0 (7-17) mg/dL Creatinine 0.97 0.9 (0.52-1.04) mg/dL Glucose 115 H 89 (74-99) mg/dL Calcium 9.2 8.7 (8.4-10.2) mg/dL AST 21 18 (14-36) U/L ALT 14 14 (4-34) U/L Alkaline Phosphatase 48 44 (38-126) U/L Total Protein 7.3 5.5 L (6.3-8.2) g/dL Albumin 4.7 4.00 (3.5-5.0) g/dL Current Medications Generic Name Dose Route Start Last Admin Trade Name Freq PRN Reason Stop Dose Admin Aspirin 325 mg 03/09/20 09:00 03/09/20 08:40 Aspirin 325 Mg Tab PO 325 mg DAILY MIRACLE Administration Atorvastatin Calcium 20 mg 03/08/20 21:00 03/08/20 21:06 Atorvastatin 20 Mg Tab PO 20 mg HS M[facility]ACLE Administration Heparin Sodium (Porcine) 5,000 unit 03/09/20 00:00 03/09/20 08:40 Heparin Sodium,Porcine 5,000 Unit/Ml 1 Ml Vial SQ 5,000 unit Q8HR M[facility]ACLE Administration Lorazepam 1 mg 03/08/20 20:45 03/08/20 22:01 Lorazepam 1 Mg Tab PO 1 mg TID PRN Administration Agitation or Acute Anxiety Nitroglycerin 0.4 mg 03/08/20 20:44 Nitroglycerin Sl Tabs 0.4 Mg Tab SUBLINGUAL Q5M PRN Chest Pain Pantoprazole Sodium 40 mg 03/08/20 23:30 03/09/20 08:42 Pantoprazole 40 Mg Tablet PO 40 mg AC-BID M[facility]ACLE Administration Zinc Sulfate 220 mg 03/09/20 09:00 03/09/20 08:39 Zinc Sulfate 220 Mg Cap PO 220 mg DAILY M[facility]ACLE Administration Intake and Output 03/08/20 03/09/20 03/09/20 22:59 06:59 14:59 Intake Total 540 Balance 540 Intake: Oral 540 Other: Voiding Method Toilet # Voids 2 2 Weight 77.111 kg 03/09/20 04:38 03/09/20 04:38
--- NOTE | 2020-03-09 11:36 | ECHOF ---
Referral Reason:chest pain MEASUREMENTS -------- HEIGHT: 170.2 cm WEIGHT: 77.1 kg BP: 120/60 RVIDd: 3.0 cm (< 3.3) IVSd: 0.8 cm (0.6 - 1.1) LVIDd: 4.9 cm (3.9 - 5.3) LVPWd: 1.0 cm (0.6 - 1.1) IVSs: 1.1 cm LVIDs: 4.2 cm LVPWs: 0.6 cm LA Diam: 2.4 cm (2.7 - 3.8) LAESV Index (A-L): 28.39 ml/m Ao Diam: 2.9 cm (2.0 - 3.7) AV Cusp: 1.9 cm (1.5 - 2.6) MV EXCURSION: 21.150 mm (> 18.000) MV EF SLOPE: 44 mm/s (70 - 150) EPSS: 0.6 cm MV E Hector: 0.60 m/s MV DecT: 125 ms MV A Hector: 0.72 m/s MV E/A Ratio: 0.83 RAP: 5.00 mmHg RVSP: 32.01 mmHg FINDINGS -------- Sinus rhythm. This was a technically adequate study. LV size, wall thickness and systolic function are normal, with an EF greater than 55%. The left helena tricular size is normal. The diastolic filling pattern is normal for the age of the patient 9.68. The right ventricle is normal in size. Normal LA size by volume 22+/-6 ml/m2. The right atrial size is normal. The aortic valve is trileaflet, and appears structurally normal. No aortic stenosis or regurgitation. The mitral valve is normal. Mild mitral regurgitation is present. The tricuspid valve appears structurally normal. Mild tricuspid regurgitation present. Right vent ricular systolic pressure is normal at < 35 mmHg. Trace/mild (physiologic) pulmonic regurgitation. The aortic root size is normal. There is a small, generalized pericardial effusion present. CONCLUSIONS -------- 1. LV size, wall thickness and systolic function are normal, with an EF greater than 55%. 2. The aortic valve is trileaflet, and appears structurally normal. No aortic stenosis or regurgitati on. 3. Mild mitral regurgitation is present. 4. Mild tricuspid regurgitation present. 5. There is a small, generalized pericardial effusion present. ULTRASOUND SPECIALIST: Teresa Kennedy RDCS
[2020-03-09 13:27] VITALS: BP 106/65; PULSE 66; RESP 16; TEMP 98.3
[2020-03-09 14:56] VITALS: BMI 26.6
--- NOTE | 2020-03-09 15:25 | ECHOS ---
STRESS ECHOCARDIOGRAM LUMASON: Vial INDICATIONS: Chest pain MEDICATIONS: BASELINE HEART RATE: 84. BASELINE BLOOD PRESSURE: 112/71 MAXIMUM HEART RATE: 153 MAXIMUM BLOOD PRESSURE: 159/50 85% MPHR: 136 100% MPHR: 160 METS: 4.6 MAXIMUM STAGE REACHED: 1 TOTAL EXERCISE TIME: 3 minutes CLINICAL INFORMATION: Baseline rhythm is sinus mechanism, rate of 84, normal axis and intervals, normal electrocardiogram. Baseline blood pressure 112/71 mmHg. Patient exercised on Nehemiah protocol for 3 minutes reaching peak rate 153 beats per minute which is equal to 96% maximum predicted heart rate. Peak blood pressure 159/50 mmHg. Test was terminated secondary to fatigue and shortness of breath. There was no chest pain. Electrocardiograph monitoring revealed no evidence of diagnostic ischemic ST deviation. Baseline echocardiogram revealed normal wall motion. At peak exercise, there was normal wall motion augmentation with no hypokinesis or dyskinesis. CONCLUSION: 1. Poor exercise tolerance with normal electrocardiograph response to exercise. 2. Normal stress echocardiogram with no evidence of stress-induced ischemia. MMODL / IJN: [id number] /
--- NOTE | 2020-03-09 16:43 | P.DS ---
Providers Date of admission: 03/08/20 20:46 Expected date of discharge: 03/09/20 Attending physician: France Johnson MD Consults: 03/08/20 20:44 Consult Physician Urgent Consulting Provider: Bashir Bower Consult Reason/Comments: chest pain Do you want consulting provider notified?: Yes Primary care physician: Ash Christy [facility] Course: This is a 59-year-old female with past medical history significant for hyperlipidemia and GERD who presented to the emergency room with chest pain. Patient was evaluated in the ER and placed on observation for further jayne gement. Twelve-lead EKG showed no acute ischemic changes. Serial troponin were negative 3 sets. Patient was seen and evaluated by cardiology. She underwent echocardiogram showing preserved ejection fraction with no significant valvular abnormalities or wall motion abnormalities. Patient also underwent a cardiac stress test that was reported negative for ischemia. She was cleared by cardiology for discharge. She will be discharged home in a stable condition. She'll be started on Protonix 40 mg daily for history of GERD. She will follow- up with her PCP as directed. Patient Condition at Discharge: Fair Plan - Discharge Summary Discharge Rx Participant: No New Discharge Prescriptions: New Pantoprazole [Protonix] 40 mg PO AC-BRKFST #30 tablet. Continue Atorvastatin [Lipitor] 20 mg PO HS Zinc 50 mg PO DAILY Multivitamins, Thera [Multivitamin (formulary)] 1 tab PO Q48H Ferrous Sulfate [Iron (65 MG Elemental)] 325 mg PO Q48H L.acidoph,Paracasei, B.lactis [Probiotic] 1 cap PO MO Discharge Medication List Atorvastatin [Lipitor] 20 mg PO HS 07/02/17 [History] Ferrous Sulfate [Iron (65 MG Elemental)] 325 mg PO Q48H 03/08/20 [History] L.acidoph,Paracasei, B.lactis [Probiotic] 1 cap PO MO 03/08/20 [History] Multivitamins, Thera [Multivitamin (formulary)] 1 tab PO Q48H 03/08/20 [History] Zinc 50 mg PO DAILY 03/08/20 [History] Pantoprazole [Protonix] 40 mg PO AC-BRKFST #30 tablet. 03/09/20 [Rx] Follow up Appointment(s)/Referral(s): Ash Christy DO [Primary Care Provider] - 1-2 days Discharge Disposition: HOME SELF-CARE
== END 2020-03-09 18:10 | disposition home or self-care (01) ==
LOC: EC 18:33 → 6NMEDSUR 20:46
PROVIDERS: ADMIT Internal Medicine; ATTEND Internal Medicine
DX: R07.89 Other chest pain (principal); E78.5 Hyperlipidemia, unspecified; K21.9 Gastro-esophageal reflux disease without esophagitis; M19.90 Unspecified osteoarthritis, unspecified site; F41.9 Anxiety disorder, unspecified; Z79.899 Other long term (current) drug therapy; Z88.1 Allergy status to other antibiotic agents; Z88.2 Allergy status to sulfonamides; Z85.828 Personal history of other malignant neoplasm of skin; Z98.51 Tubal ligation status; Z98.890 Other specified postprocedural states; Z82.49 Family history of ischemic heart disease and other diseases of the circulatory system
CPT/HCPCS: 96372; 99285; 36415; 93005 ×2; 93306; 93351; 80061; 80053 ×2; 83690; 83735; 84484 ×2; 85025 ×2; 85610; 85730; 71046; G0378 ×2; J1644

== ENCOUNTER → 2020-11-09 | Outpatient (CLI) | payer OTHER ==
--- NOTE | 2020-11-09 10:18 | CT ---
EXAMINATION TYPE: CT ChestAbdPelvis w con DATE OF EXAM: 11/09/2020 COMPARISON: 10/01/2019 HISTORY: Lymphoma CT DLP: 1192 mGycm CONTRAST: CT scan of the chest, abdomen and pelvis is performed with Oral Contrast and with IV Contrast, patien t injected with 100 mL of Isovue 300. CT Chest: LUNGS: The lungs are clear and free of infiltrate or atelectasis. No pulmonary nodule or mass is det ected. No pleural effusion or CT evidence of interstitial lung disease. MEDIASTINUM: Thoracic aorta is of normal caliber. The heart is not enlarged. No evidence for media stinal mass or adenopathy. HILAR STRUCTURES: No evidence for mass. No hilar adenopathy is appreciated. OTHER: Multiple enlarged lymph nodes left axilla measuring up to 1.5 cm. Right axilla demonstrates cameron bcentimeter lymph nodes. CONTRAST CT ABDOMEN AND PELVIS FINDINGS: LIVER/GB: No calcified gallstones. No space occupying hepatic lesion. Biliary tree is of normal ca liber. PANCREAS: No inflammation. No distinct mass. SPLEEN: No splenic enlargement. No lesion seen. ADRENALS: No nodule. No thickening. KIDNEYS/BLADDER: The kidneys are enlarged and demonstrate an infiltrative appearance bilaterally susp icious for lymphomatous involvement of the kidneys. Correlate clinically. Craniocaudal measurement of the right kidney 13.6 cm versus 12.1 cm previously and craniocaudal measurement of the left kidney 1 4.5 cm versus 11.4 cm previously. No hydronephrosis. No nephrolithiasis. BOWEL: Normal appendix. Normal bowel caliber. No inflammation. GENITAL ORGANS: Lobulated appearance of the uterus may reflect underlying leiomyomatous change. LYMPH NODES: Increasing periportal adenopathy with multiple enlarged lymph nodes measuring up to 3 cm versus 2.8 cm previously. Increasing celiac axis adenopathy measuring up to 1.3 cm. There is para-ao rtic adenopathy which has also increased with lymph node mass noted on the left measuring 3.5 cm in A P dimension however extends nearly 16 cm in craniocaudal dimension. There are a few enlarged aortoent carol caval lymph nodes. Periaortic adenopathy up to 1 cm. Left common iliac and external iliac chain adenopathy noted with interval increase in size in maximal dimension of 7.3 x 4.4 cm. Right iliac alicia in is free of adenopathy. AORTA: No significant abnormality. OSSEOUS STRUCTURES: No significant abnormality is seen. OTHER: No significant additional abnormality is seen. IMPRESSION: 1. Bilateral enlargement of the kidney suspicious for lymphomatous involvement. Correlate clinically. 2. Increasing para-aortic adenopathy and increasing left iliac chain adenopathy. 3. Increasing periportal adenopathy.
== END | disposition home or self-care (01) ==
LOC: RADCTMAIN 08:04
PROVIDERS: ATTEND Internal Medicine Hematology & Oncology
DX: C85.90 Non-Hodgkin lymphoma, unspecified, unspecified site (principal); N28.89 Other specified disorders of kidney and ureter; R59.0 Localized enlarged lymph nodes
CPT/HCPCS: 71260; 74177; Q9967

== ENCOUNTER → 2021-02-17 | Outpatient (CLI) | payer OTHER ==
--- NOTE | 2021-02-17 12:57 | CT ---
EXAMINATION TYPE: CT ChestAbdPelvis w con DATE OF EXAM: 02/17/2021 COMPARISON: Most recent CT November 09, 2020 and older studies HISTORY: Mantle cell Lymphoma (started in left groin area). Suspect mets. On chemotherapy currently. CT DLP: 590.4 mGycm. Automated Exposure Control for Dose Reduction was Utilized. CONTRAST: CT scan of the thorax, abdomen and pelvis is performed with oral and with IV Contrast, patient inject ed with 100 mL of Isovue 300. FINDINGS: LUNGS: Mild linear atelectasis or scarring in bilateral bases redemonstrated. No suspicious new Great er than 5 mm nodules or masses bilaterally. There is no pleural effusion or pneumothorax seen. The t racheobronchial tree is patent. MEDIASTINUM: There are no new greater than 1 cm hilar or mediastinal lymph nodes. Some scattered prom inent but subcentimeter mediastinal lymph nodes are redemonstrated. No cardiomegaly is seen. Small pericardial effusion anteriorly axial image 46 is new or larger from prior studies. Stable just over 1.0 cm lower pole left thyroid nodule coronal image 24. No suspicious axillary adenopathy noted on current study. LIVER/GB: Liver stable in size and not enlarged. Stable subcentimeter low dense lesion posterior left hepatic lobe axial image 54 presumed benign. PANCREAS: No significant abnormality is seen. SPLEEN: Spleen measures normal in size on current study. ADRENALS: No significant abnormality is seen. KIDNEYS: Symmetrical cortical medullary uptake and excretion without hydronephrosis seen bilaterally. Improved appearance to the renal enlargement and perinephric surrounding low dense tissue. BOWEL: Oral contrast reaches level proximal sigmoid colon making evaluation of distal bowel suboptima l. Evaluation slightly suboptimal as patient has little intra-abdominal fat. No suspicious small or l arge bowel dilatation. Sigmoid colonic diverticula are present. LYMPH NODES: Marked improvement in abnormal abdominal and pelvic adenopathy on current study. Some pr ominent but subcentimeter lymph nodes left periaortic region distally extending along the iliac chain vessel remain present but show marked improvement on current study. Improved adenopathy distal left external iliac chain level axial image 106 versus prior study 111. Some residual ill-defined left giancarlo in adenopathy axial image 116 significantly improved from prior measuring approximately 2.1 x 1.1 cm current study. Genital structures: Anteverted uterus is present. OSSEOUS STRUCTURES: No significant abnormality is seen. OTHER: Stable small size fat-containing umbilical hernia axial image 81 redemonstrated. IMPRESSION: Marked positive treatment response from most recent CT as detailed above.
== END | disposition home or self-care (01) ==
LOC: RADCTMAIN 10:28
PROVIDERS: ATTEND Internal Medicine Hematology & Oncology
DX: C83.18 Mantle cell lymphoma, lymph nodes of multiple sites (principal); J98.11 Atelectasis; J98.4 Other disorders of lung; I31.3 Pericardial effusion (noninflammatory); E04.1 Nontoxic single thyroid nodule; N28.81 Hypertrophy of kidney; K57.30 Diverticulosis of large intestine without perforation or abscess without bleeding; N85.4 Malposition of uterus
CPT/HCPCS: 82565; 84520; 71260; 74177; 36415; Q9967 ×2

== ENCOUNTER → 2021-06-10 | Outpatient (CLI) | payer OTHER ==
[~2021-06-10] MED LIST changes: -DEXAMETHASONE SOD PHOSPHATE 10 MG/ML 1 ML VIAL IV ONE; -HEPARIN SODIUM,PORCINE 5,000 UNIT/ML 1 ML VIAL SQ ONE; -HYDROmorphone 0.5 MG/0.5 ML SYRINGE IVP PRN; -LACTATED RINGERS 1,000 ML IV SCH; -MIDAZOLAM 2 MG/2 ML VIAL IV PRN; -ONDANSETRON 4 MG/2 ML VIAL IVP ONE; -Pre Op ABX Message 1 EACH MISC MISCELLANE ONE; -SCOPOLAMINE 1.5MG/72HR PATCH TRANSDERM ONE; +TIXAGEVIMAB/CILGAVIMAB (EUA) 300 MG/3 ML COMBO.PKG IM NR
[2021-06-10 10:49] VITALS: RESP 16; TEMP 98.2
[2021-06-10 11:34] VITALS: BP 106/66; PULSE 76
== END ==
LOC: PROCWHC3 10:16
PROVIDERS: ATTEND Internal Medicine Hematology & Oncology
DX: C83.18 Mantle cell lymphoma, lymph nodes of multiple sites (principal); Z92.21 Personal history of antineoplastic chemotherapy; Z88.1 Allergy status to other antibiotic agents; Z88.2 Allergy status to sulfonamides
CPT/HCPCS: Q0220; M0220

== ENCOUNTER → 2021-06-21 | Outpatient (CLI) | payer OTHER ==
[2021-06-21 10:22] LABS: African American GFR (CKD) >90 (>60 ml/min/1.73 sqM); Blood Urea Nitrogen 9 mg/dL (7-17); Non-African American GFR(CKD) 80 (>60 ml/min/1.73 sqM)
--- NOTE | 2021-06-21 14:14 | CT ---
EXAMINATION TYPE: CT ChestAbdPelvis w con DATE OF EXAM: 06/21/2021 COMPARISON: CT dated 02/17/2021 HISTORY: Mantel Cell Lymphoma CT DLP: 1118 mGycm Automated exposure control for dose reduction was used. CONTRAST: CT scan of the chest, abdomen and pelvis is performed with Oral Contrast and with IV Contrast, patien t injected with 100 mL of Isovue 300. FINDINGS: LUNGS: The lungs are grossly clear, there is no concerning parenchymal mass or nodule identified. T here is no pleural effusion or pneumothorax seen. The tracheobronchial tree is patent. MEDIASTINUM: There are no greater than 1 cm hilar or mediastinal lymph nodes. No progressive lymphade nopathy. No gross cardiomegaly. Unremarkable major mediastinal vessels. Smaller pericardial effusion yet still appreciated. OTHER: No aggressive bone lesion. LIVER/GB: Left posterior hepatic lobe cyst, appreciated previously. Grossly unremarkable gallbladder. PANCREAS: No significant abnormality is seen. SPLEEN: Slightly larger spleen measuring 12.5 cm in AP dimension compared to 11.4 cm previously. No d efinite splenic focal lesion identified. ADRENALS: No significant abnormality is seen. KIDNEYS: Stable right renal cyst, otherwise unremarkable kidneys. BOWEL: Unremarkable stomach, duodenum and small bowel. Mild diffuse wall thickening of the colon sug gestive of chronic colitis, please correlate clinically. Scattered uncomplicated colonic diverticulos is. REPRODUCTIVE ORGANS: No gross uterine or adnexal mass. Prominent left ovarian vein and pelvic veins w hich can be seen in cases of varicose veins versus pelvic congestion syndrome. LYMPH NODES: Stable elongated soft tissue thickening in the left inguinal region measuring up to 2.2 cm. Smaller left inferior para-aortic lymph node measuring 6 mm compared to 7 mm previously. Subcenti meter left iliac lymph nodes, also slightly regressed compared to the previous CT scan. No pathologic ally enlarged or progressive lymphadenopathy in the abdomen or the pelvis. OSSEOUS STRUCTURES: No aggressive bone lesion. OTHER: Scattered arterial atherosclerotic calcifications. No sizable ascites. Bilateral small fat-con taining inguinal hernias. Fat-containing umbilical hernia. IMPRESSION: Slightly larger AP dimension of the spleen without definite splenic focal lesion as compared to the p revious CT scan. Still no evidence of splenomegaly. Smaller previously seen retroperitoneal and left iliac lymph nodes as described above. No progressive lymphadenopathy seen in the chest, abdomen or the pelvis. Other interval changes and incidental findings as described above.
== END | disposition home or self-care (01) ==
LOC: RADCTMAIN 08:24
PROVIDERS: ATTEND Internal Medicine Hematology & Oncology
DX: C83.18 Mantle cell lymphoma, lymph nodes of multiple sites (principal)
CPT/HCPCS: 82565; 84520; 71260; 74177; 36415; Q9967

== ENCOUNTER → 2021-09-12 | Outpatient (CLI) | payer OTHER ==
[~2021-09-12] MED LIST changes: +ACETAMINOPHEN TAB 325 MG TAB PO NR; +FAMOTIDINE 20 MG/2 ML VIAL IV NR; +RITUXIMAB PVVR IV NR; +SODIUM CHLORIDE 0.9% 500 ML 500 ML in EMPTY BAG 1 BAG IV PRN; +SODIUM CHLORIDE 0.9% IV NR; -TIXAGEVIMAB/CILGAVIMAB (EUA) 300 MG/3 ML COMBO.PKG IM NR; +diphenhydrAMINE 50 MG/ML 1 ML VIAL IVP NR; +methylPREDNISolone SOD SUCCI 125 MG/2 ML VIAL IV NR
[2021-09-12 09:39] VITALS: RESP 16; TEMP 98.3
[2021-09-12 10:25] LABS: Basophils % (A) 1 %; Eosinophils # (A) 0.1 k/uL (0-0.7); Eosinophils % (A) 7 %; HCT 33.7 % (34.0-46.0); HGB 11.5 gm/dL (11.4-16.0); Lymphocytes # (A) 0.4 k/uL (1.0-4.8); Lymphocytes % (A) 25 %; MCH 31.9 pg (25.0-35.0); MCHC 34.1 g/dL (31.0-37.0); MCV 93.5 fL (80.0-100.0); Mean Platelet Volume 7.6; Monocytes # (A) 0.2 k/uL (0-1.0); Monocytes % (A) 14 %; Neutrophils # (A) 0.7 k/uL (1.3-7.7); Neutrophils % (A) 51 %; Platelet Count 174 k/uL (150-450); RDW 13.3 % (11.5-15.5)
[2021-09-12 10:28] LABS: WBC 1.4 k/uL (3.8-10.6)
[2021-09-12 11:50] VITALS: BP 114/73; PULSE 63
== END ==
LOC: PROCWHC3 09:24
PROVIDERS: ATTEND Internal Medicine Hematology & Oncology
DX: C83.18 Mantle cell lymphoma, lymph nodes of multiple sites (principal); Z88.1 Allergy status to other antibiotic agents; Z88.2 Allergy status to sulfonamides
CPT/HCPCS: 85025; 96365; 96366; 96375; 36415; J2930; Q5119

== ENCOUNTER → 2022-02-20 | Outpatient (CLI) | payer OTHER ==
[2022-02-20 19:02] LABS: Immunoglobulin A 92.3 mg/dL (60.0-350.0)
[2022-02-20 19:17] LABS: Immunoglobulin M 6.8 mg/dL (40.0-280.0)
== END | disposition home or self-care (01) ==
LOC: LABWHC1 10:53
PROVIDERS: ATTEND Internal Medicine Hematology & Oncology
DX: C83.18 Mantle cell lymphoma, lymph nodes of multiple sites (principal); M12.9 Arthropathy, unspecified; D64.9 Anemia, unspecified; E78.00 Pure hypercholesterolemia, unspecified
CPT/HCPCS: 36415; 82784

== ENCOUNTER → 2022-06-27 | Outpatient (CLI) | payer OTHER ==
[2022-06-27 16:25] LABS: HCT 41.8 % (37.2-46.3); HGB 13.8 g/dL (12.0-15.0); MCH 31.1 pg (27.0-32.0); MCV 94.1 fL (80.0-97.0); Mean Platelet Volume 10.2 fL (9.5-12.2); NRBC Per 100 WBC 0 /100 WBCS (0.0-0.0); Platelet Count 179 X 10*3/uL (140-440); RBC 4.44 X 10*6/uL (4.10-5.20); RDW 12.9 % (11.5-14.5); WBC 2.07 X 10*3/uL (4.50-10.00)
[2022-06-27 16:40] LABS: ALT 17 U/L (8-44); AST 20 U/L (13-35); African American GFR (CKD) 70.2 (60.0-200.0); Albumin 4.5 g/dL (3.8-4.9); Albumin/Globulin Ratio 2.57 (1.60-3.17); Alkaline Phosphatase 95 U/L (41-126); BUN/Creat Ratio 10.09 Ratio (12.00-20.00); Calcium 9.4 mg/dL (8.7-10.3); Carbon Dioxide 27.4 mmol/L (20.0-27.5); Chloride 104 mmol/L (96-109); Chol/HDL Ratio 2.96 Ratio; Globulin 1.8 g/dL (1.6-3.3); Glucose 92 mg/dL (70-110); LDL Cholesterol,Calculated 100.3 mg/dL (0.0-131.0); Non-African American GFR(CKD) 60.6 (60.0-200.0); Potassium 4.5 mmol/L (3.5-5.5); Sodium 142 mmol/L (135-145); Total Protein 6.3 g/dL (6.2-8.2)
[2022-06-27 16:53] LABS: Basophils # (A) 0.03 X 10*3/uL (0.00-0.10); Basophils % (A) 1.4 %; Eosinophils # (A) 0.16 X 10*3/uL (0.04-0.35); Eosinophils % (A) 7.7 %; Immature Grans, Automated 0 %; Lymphocytes % (A) 38.6 %; Monocytes # (A) 0.35 X 10*3/uL (0.20-1.00); Monocytes % (A) 16.9 %; Neutrophils # (A) 0.73 X 10*3/uL (1.80-7.70); Neutrophils % (A) 35.4 %
[2022-06-27 16:54] LABS: RBC Morphology NORMAL
== END | disposition home or self-care (01) ==
LOC: LABWHC1 09:32
PROVIDERS: ATTEND Physician Assistant Medical
DX: Z00.00 Encounter for general adult medical examination without abnormal findings (principal); C83.18 Mantle cell lymphoma, lymph nodes of multiple sites; M12.9 Arthropathy, unspecified; D64.9 Anemia, unspecified; E78.00 Pure hypercholesterolemia, unspecified
CPT/HCPCS: 36415; 80053; 80061; 84439; 84443; 85025

== ENCOUNTER → 2022-07-18 | Outpatient (CLI) | payer OTHER ==
--- NOTE | 2022-07-18 19:16 | BD ---
EXAMINATION TYPE: Axial Bone Density DATE OF EXAM: 07/18/2022 CLINICAL HISTORY: 62 years old Female. ICD-10 CODE: M85.88 OSTEOPENIA Height: 66.5 Weight: 170 FRAX RISK QUESTIONS: Family History (Parent hip fracture): no History of Fracture in Adulthood: no Secondary Osteoporosis: no RISK FACTORS HISTORY OF: Family History of Osteoporosis: no Active: yes Diet low in dairy products/other sources of calcium: yes Postmenopausal woman: yes, age 49 Lost more than 2 inches in height since high school: no Frequent falls: no Poor Health: no MEDICATIONS: Additional Medications: yes cholesterol meds, reflux meds, iron, vit d3, blue fusion Additional History: yes Lymphoma 07/2019 with chemo in 11/2020 for 6 month EXAM MEASUREMENTS: Bone mineral densitometry was performed using the [employer]. Bone mineral density as measured about the Lumbar spine is: ----- L1-L4(G/cm2): 1.204 T Score Values are as follows: ----- L1: 0.5 ----- L2: 0.2 ----- L3: 0.3 ----- L4: -0.2 ----- L1-L4: 0.2 Z Score Values are as follows: ----- L1: 1.6 ----- L2: 1.3 ----- L3: 1.4 ----- L4: 0.8 ----- L1-L4: 1.2 Bone mineral density has: Increased 3.6% since study of: 09/23/2019 Bone mineral density about the R hip (g/cm2): 0.815 Bone mineral density about the L hip (g/cm2): 0.876 T Score values are as follows: -----R Neck: -2.5 -----L Neck: -2.1 -----R Total: -1.5 -----L Total: -1.0 Z Score values are as follows: -----R Neck: -1.4 -----L Neck: -1.0 -----R Total: -0.7 -----L Total: -0.2 Bone mineral density has: Decreased -1.4% since study of: 09/23/2019 FRAX%s: The graph provided illustrates a 12.7% chance for a major osteoporotic fx and a 2.5% chance f or the hips probability for fx in 10 years time. IMPRESSION: Osteoporosis (T Score less than -2.5). There is increased fracture risk and therapy is usually indicated based on age. Re-Screen 1-2 years. NOTE: T-SCORE=SD OF THE YOUNG ADULT MEAN.
--- NOTE | 2022-07-19 12:30 | MM ---
Reason for Exam: Screening (asymptomatic). Last mammogram was performed 2 year(s) and 10 month(s) ago. Patient History: Menarche at age 15. First Full-Term at age 21. Postmenopausal. 2002, Bilateral Benign Cyst Aspiration. Paternal aunt had breast cancer. Paternal aunt had breast cancer. Risk Values: Anaid 5 year model risk: 1.3%. NCI Lifetime model risk: 5.5%. Prior Study Comparison: 10/23/2016 Bilateral Screening Mammogram, [facility]. 11/01/2017 Bilateral Screening Mammogram, [facility]. 09/23/2019 Bilateral Screening Mammogram, [facility]. Tissue Density: The breast tissue is heterogeneously dense. This may lower the sensitivity of mammography. Findings: Analyzed By CAD. . There is occasional tiny benign-appearing punctate calcifications scattered throughout the bilateral breasts. There is no suspicious group of microcalcifications or new suspicious mass in either breast. Overall Assessment: Negative, BI-RAD 1 Management: Screening Mammogram of both breasts in 1 year. . Patient should continue monthly self-breast exams. A clinical breast exam by your physician is recommended on an annual basis. This exam should not preclude additional follow-up of suspicious palpable abnormalities. Note on Anaid scores and lifetime risk: 1. A Anaid score greater than 3% is considered moderate risk. If this is the case, consider specialist referral to assess eligibility for a risk reducing agent. 2. If overall lifetime risk for the development of breast cancer is 20% or higher, the patient may qualify for future screening with alternating mammogram and breast MRI. Electronically signed and approved by: Crow Cool M.D.
== END | disposition home or self-care (01) ==
LOC: RADMAMWWP 13:27
PROVIDERS: ATTEND Obstetrics & Gynecology
DX: Z12.31 Encounter for screening mammogram for malignant neoplasm of breast (principal); M81.0 Age-related osteoporosis without current pathological fracture; M85.89 Other specified disorders of bone density and structure, multiple sites; Z78.0 Asymptomatic menopausal state; Z80.3 Family history of malignant neoplasm of breast; Z85.72 Personal history of non-Hodgkin lymphomas; Z92.21 Personal history of antineoplastic chemotherapy
CPT/HCPCS: 77063; 77067; 77080

== ENCOUNTER → 2022-09-29 | Outpatient (CLI) | payer OTHER ==
[2022-09-29 16:50] LABS: ALT 11 U/L (8-44); AST 12 U/L (13-35); Albumin 4.3 d/dL (3.8-4.9); Albumin/Globulin Ratio 2.26 Ratio (1.60-3.17); Alkaline Phosphatase 77 U/L (41-126); Blood Urea Nitrogen 8.9 mg/dL (9.0-27.0); Calcium 9.3 mg/dL (8.7-10.3); Carbon Dioxide 25.1 mmol/L (21.6-31.8); Chloride 102 mmol/L (96-109); Globulin 1.9 d/dL (1.6-3.3); Glucose 102 mg/dL (70-110); Immunoglobulin A 98.4 mg/dL (60.0-350.0); Potassium 3.8 mmol/L (3.5-5.5); Sodium 141 mmol/L (135-145); Total Bilirubin 0.3 mg/dL (0.3-1.2); Total Protein 6.2 d/dL (6.2-8.2)
[2022-09-29 17:07] LABS: Immunoglobulin M <35.0 mg/dL (40.0-280.0)
[2022-09-30 05:15] LABS: Basophils # (A) 0.03 X 10*3/uL (0.00-0.10); Basophils % (A) 0.8 %; Eosinophils # (A) 0.21 X 10*3/uL (0.04-0.35); Eosinophils % (A) 5.6 %; HCT 38.4 % (37.2-46.3); Lymphocytes # (A) 0.86 X 10*3/uL (0.90-5.00); Lymphocytes % (A) 23.1 %; MCH 30.2 pg (27.0-32.0); MCHC 31.3 d/dL (32.0-37.0); MCV 96.7 FL (80.0-97.0); Mean Platelet Volume 10.4 FL (9.5-12.2); Monocytes # (A) 0.53 X 10*3/uL (0.20-1.00); Monocytes % (A) 14.2 %; NRBC Per 100 WBC 0 X 10*3/uL (0.00-0.01); Neutrophils # (A) 2.08 X 10*3/uL (1.80-7.70); Neutrophils % (A) 55.8 %; Platelet Count 301 X 10*3/uL (140-440); RBC 3.97 X 10*6/uL (4.10-5.20); RDW 15.3 % (11.5-14.5); WBC 3.73 X 10*3/uL (4.50-10.00)
== END | disposition home or self-care (01) ==
LOC: LABWHC1 11:16
PROVIDERS: ATTEND Internal Medicine Hematology & Oncology
DX: C83.18 Mantle cell lymphoma, lymph nodes of multiple sites (principal); M12.9 Arthropathy, unspecified; D64.9 Anemia, unspecified; E78.00 Pure hypercholesterolemia, unspecified
CPT/HCPCS: 36415; 80053; 82784; 85025

== ENCOUNTER → 2022-11-20 | Outpatient (CLI) | payer OTHER ==
[2022-11-20 14:54] LABS: African American GFR (CKD) >90 (>60 ml/min/1.73 sqM); Blood Urea Nitrogen 12 mg/dL (7-17); Non-African American GFR(CKD) >90 (>60 ml/min/1.73 sqM)
--- NOTE | 2022-11-22 15:27 | CT ---
EXAMINATION TYPE: CT ChestAbdPelvis w con DATE OF EXAM: 11/20/2022 COMPARISON: 06/21/2021 HISTORY: Mantle cell lymphoma CT DLP: 746.40 mGycm CONTRAST: CT scan of the chest, abdomen and pelvis is performed with Oral Contrast and with IV Contrast, patien t injected with 100 mL of Isovue 300. CT Chest: LUNGS: The lungs are clear and free of infiltrate or atelectasis. No pulmonary nodule or mass is det ected. There is dependent basilar atelectasis seen. No pleural effusion or CT evidence of interstitia l lung disease. MEDIASTINUM: Thoracic aorta is of normal caliber. The heart is not enlarged. No evidence for media stinal mass or adenopathy. HILAR STRUCTURES: No evidence for mass. No hilar adenopathy is appreciated. OTHER: No significant abnormality. CONTRAST CT ABDOMEN AND PELVIS FINDINGS: LIVER/GB: No calcified gallstones. The gallbladder is contracted. No space occupying hepatic lesio n. Biliary tree is of normal caliber. PANCREAS: No inflammation. No distinct mass. SPLEEN: No splenic enlargement. The spleen measures 10.5 cm craniocaudal dimension. No lesion seen. ADRENALS: No nodule. No thickening. KIDNEYS/BLADDER: No hydronephrosis. No nephrolithiasis. No disctinct renal mass. BOWEL: Normal appendix. Normal bowel caliber. No inflammation. GENITAL ORGANS: No gross abnormality. LYMPH NODES: Tiny subcentimeter retroperitoneal and iliac chain lymph nodes are redemonstrated. No ad enopathy greater than 1 cm. AORTA: No significant abnormality. OSSEOUS STRUCTURES: No significant abnormality is seen. OTHER: Fat-containing inguinal hernias. IMPRESSION: 1. Tiny subcentimeter retroperitoneal and iliac chain lymph nodes are redemonstrated. No adenopathy g reater than 1 cm. 2. The spleen is smaller in size on today's study at 10.5 cm versus 12.5 cm previously.
== END | disposition home or self-care (01) ==
LOC: RADCTMAIN 14:01
PROVIDERS: ATTEND Internal Medicine Hematology & Oncology
DX: C83.18 Mantle cell lymphoma, lymph nodes of multiple sites (principal); M12.9 Arthropathy, unspecified; D64.9 Anemia, unspecified; E78.00 Pure hypercholesterolemia, unspecified; R59.0 Localized enlarged lymph nodes
CPT/HCPCS: 82565; 84520; 71260; 74177; Q9967

== ENCOUNTER → 2022-12-11 | Outpatient (CLI) | payer OTHER ==
--- NOTE | 2022-12-11 14:54 | CT ---
EXAMINATION TYPE: CT sinus wo con DATE OF EXAM: 12/11/2022 COMPARISON: None HISTORY: c/o dizziness, loss of hearing, ringing in ears. hx of lymphoma CT DLP: 455.1 mGycm. Automated Exposure Control for Dose Reduction was Utilized. TECHNIQUE: CT scan of the sinuses is performed without contrast, axial images are obtained, coronal r eformatted images are also reviewed. FINDINGS: The There is moderate to severe mucosal thickening involving the visualized paranasal sinuses most marked involving the ethmoid air cells and frontal sinus.. The ostiomeatal complex is patent on the left a nd occluded on the right.. Visualized portion of mastoid air cells show moderate opacification on the right. There is no signifi cant opacification on the left. There is a fluid attenuation extending into the middle ear which may represent an area of granulation or middle ear effusion. No scrotal or erosion to confirm cholesteato ma. There is tympanic membrane thickening. Hyperostosis of the calvarium. The globes are intact bila terally. IMPRESSION: 1. Moderate to severe orona chronic sinusitis with occlusion of the right ostiomeatal complex. 2. Moderate right-sided mastoiditis with right-sided small middle ear effusion or granulation. No alicia gnostic evidence of cholesteatoma. Consider posttreatment high resolution CT IACs for further evalua tion.
== END | disposition home or self-care (01) ==
LOC: RADCTMAIN 14:16
PROVIDERS: ATTEND Internal Medicine Hematology & Oncology
DX: C83.18 Mantle cell lymphoma, lymph nodes of multiple sites (principal); J32.9 Chronic sinusitis, unspecified; H70.91 Unspecified mastoiditis, right ear
CPT/HCPCS: 70486

== ENCOUNTER → 2023-03-20 | Outpatient (CLI) | payer OTHER ==
[2023-03-20 17:50] LABS: Immunoglobulin A 75.1 mg/dL (60.0-350.0)
[2023-03-20 18:09] LABS: Immunoglobulin M <35.0 mg/dL (40.0-280.0)
[2023-03-20 19:16] LABS: Immunoglobulin E <5.00 IU/mL (0.00-114.00)
== END | disposition home or self-care (01) ==
LOC: LABWHC1 12:11
PROVIDERS: ATTEND Allergy & Immunology
DX: J01.91 Acute recurrent sinusitis, unspecified (principal); D84.9 Immunodeficiency, unspecified
CPT/HCPCS: 36415; 82784; 82785; 82787; 86003; 86317

== ENCOUNTER → 2023-05-24 | Outpatient (CLI) | payer OTHER ==
[2023-05-24 15:25] LABS: Basophils # (A) 0.03 X 10*3/uL (0.00-0.10); Basophils % (A) 1.4 %; Eosinophils # (A) 0.13 X 10*3/uL (0.04-0.35); Eosinophils % (A) 6.2 %; HCT 40.5 % (37.2-46.3); HGB 13.2 g/dL (12.0-15.0); Lymphocytes # (A) 1.07 X 10*3/uL (0.90-5.00); Lymphocytes % (A) 51.2 %; MCH 29.5 pg (27.0-32.0); MCHC 32.6 g/dL (32.0-37.0); MCV 90.6 FL (80.0-97.0); Monocytes # (A) 0.28 X 10*3/uL (0.20-1.00); Monocytes % (A) 13.4 %; NRBC Per 100 WBC 0 X 10*3/uL (0.00-0.01); Neutrophils # (A) 0.57 X 10*3/uL (1.80-7.70); Neutrophils % (A) 27.3 %; Platelet Count 223 X 10*3/uL (140-440); RBC 4.47 X 10*6/uL (4.10-5.20); RDW 15.5 % (11.5-14.5); WBC 2.09 X 10*3/uL (4.50-10.00)
[2023-05-24 16:01] LABS: ALT 18 U/L (8-44); AST 20 U/L (13-35); Albumin 4.5 g/dL (3.8-4.9); Albumin/Globulin Ratio 2.65 Ratio (1.60-3.17); Alkaline Phosphatase 108 U/L (41-126); BUN/Creat Ratio 14.67 Ratio (12.00-20.00); Blood Urea Nitrogen 13.2 mg/dL (9.0-27.0); Calcium 9.6 mg/dL (8.7-10.3); Carbon Dioxide 21.4 mmol/L (21.6-31.8); Chloride 106 mmol/L (96-109); Chol/HDL Ratio 3.38 Ratio; Globulin 1.7 g/dL (1.6-3.3); Glucose 97 mg/dL (70-110); LDL Cholesterol,Calculated 114.7 mg/dL (0.0-131.0); Potassium 4.3 mmol/L (3.5-5.5); Sodium 142 mmol/L (135-145); Total Bilirubin 0.3 mg/dL (0.3-1.2); Total Protein 6.2 g/dL (6.2-8.2)
[2023-05-24 17:27] LABS: Immunoglobulin M <35.0 mg/dL (40.0-280.0)
== END | disposition home or self-care (01) ==
LOC: LABWHC1 10:06
PROVIDERS: ATTEND Internal Medicine Hematology & Oncology
DX: C83.13 Mantle cell lymphoma, intra-abdominal lymph nodes (principal); C85.90 Non-Hodgkin lymphoma, unspecified, unspecified site; D64.9 Anemia, unspecified; E78.00 Pure hypercholesterolemia, unspecified; M12.9 Arthropathy, unspecified; K21.9 Gastro-esophageal reflux disease without esophagitis; Z83.3 Family history of diabetes mellitus
CPT/HCPCS: 36415; 80053; 80061; 82784; 83036; 84443; 85025

== ENCOUNTER → 2024-01-21 | Outpatient (CLI) | payer OTHER ==
--- NOTE | 2024-01-21 14:23 | CT ---
EXAMINATION TYPE: CT ChestAbdPelvis w con DATE OF EXAM: 01/21/2024 COMPARISON: 11/20/2022 HISTORY: f/u mantle cell lymphoma CT DLP: 1861 mGycm Automated exposure control for dose reduction was used. CONTRAST: CT scan of the chest, abdomen and pelvis is performed with Oral Contrast and with IV Contrast, patien t injected with 100 mL of Isovue 300. FINDINGS: LUNGS: Basilar subsegmental consolidation posteriorly most typical of atelectasis. No focal pneumonia or pulmonary edema. No suspicious appearing nodule. Apical pleural thickening or scarring. 1 to 2 mm subpleural pulmonary nodules have a benign appearance. Likely inflammatory. MEDIASTINUM: There are no greater than 1 cm hilar or mediastinal lymph nodes. Trace of pericardial ef fusion is seen. OTHER: No additional significant abnormality is seen. LIVER/GB: The liver is reduced in attenuation compatible with mild hepatic steatosis. May be very mil d central biliary dilation. No obvious gallstones. PANCREAS: No significant abnormality is seen. SPLEEN: No significant abnormality is seen. ADRENALS: No significant abnormality is seen. KIDNEYS: No significant abnormality is seen. BOWEL: No obstruction. Mild wall thickening of the right colon is stable and appears chronic no infl ammatory changes. Moderate sigmoid diverticulosis with no CT evidence of diverticulitis. REPRODUCTIVE ORGANS: No gross abnormality seen. LYMPH NODES: No greater than 1 cm abdominal or pelvic lymph nodes are appreciated. OSSEOUS STRUCTURES: Stable sclerotic focus right femoral head and inferior pubic ramus too small to c haracterize but likely benign. Mild hypertrophic SI joint arthropathy. Mild degenerative disc disease . Lucent change involving T12 and L3 are most typical of tiny vertebral body hemangioma. OTHER: Soft tissue nodules in the adnexal region are most typical of ovarian tissue. Small fat-contai candace inguinal hernia. IMPRESSION: 1. Stable CT scan chest abdomen and pelvis. No evidence of pathologic adenopathy\metastasis. 2. Chronic wall thickening of the right colon unchanged from prior exams may represent mild chronic i nflammatory colitis correlate clinically. No acute inflammatory changes. [facility], , 01/21/2024 2:20 PM
== END | disposition home or self-care (01) ==
LOC: RADCTMAIN 10:57
PROVIDERS: ATTEND Internal Medicine Hematology & Oncology
DX: C83.18 Mantle cell lymphoma, lymph nodes of multiple sites (principal); M12.9 Arthropathy, unspecified; D64.9 Anemia, unspecified; E78.00 Pure hypercholesterolemia, unspecified; K40.90 Unilateral inguinal hernia, without obstruction or gangrene, not specified as recurrent; I31.39 Other pericardial effusion (noninflammatory)
CPT/HCPCS: 71260; 74177; Q9967

== ENCOUNTER → 2024-07-31 | Outpatient (CLI) | payer MEDICARE ==
--- NOTE | 2024-07-31 13:14 | BD ---
EXAMINATION TYPE: Axial Bone Density DATE OF EXAM: 07/31/2024 CLINICAL HISTORY: 64 years old Female. ICD-10 CODE: Z78.0 MENOPAUSAL STATE , Additional History: Height: 66.5 Weight: 190 FRAX RISK QUESTIONS: Secondary Osteoporosis: RISK FACTORS HISTORY OF: MEDICATIONS: EXAM MEASUREMENTS: Bone mineral densitometry was performed using the [facility] System. Bone mineral density as measured about the Lumbar spine is: ----- L1-L4(G/cm2): 1.160 T Score Values are as follows: ----- L1: -0.3 ----- L2: 0.0 ----- L3: 0.0 ----- L4: -0.5 ----- L1-L4: -0.2 Z Score Values are as follows: ----- L1: 0.6 ----- L2: 0.9 ----- L3: 0.9 ----- L4: 0.3 ----- L1-L4: 0.7 Bone mineral density has: Decreased -3.7% since study of: 07-18-22 Bone mineral density about the R hip (g/cm2): 0.818 Bone mineral density about the L hip (g/cm2): 0.878 T Score values are as follows: -----R Neck: -2.1 -----L Neck: -1.9 -----R Total: -1.5 -----L Total: -1.0 Z Score values are as follows: -----R Neck: -1.1 -----L Neck: -0.9 -----R Total: -0.8 -----L Total: -0.3 Bone mineral density has: Increased 0.2% since study of: 07-18-22 FRAX%s: The graph provided illustrates a 11.1% chance for a major osteoporotic fx and a 1.8% chance f or the hips probability for fx in 10 years time. IMPRESSION: Osteopenia (T Score between -2.5 and -1). There is slightly increased risk of fracture and the patient may be considered for treatment. Re-Screen 2-5 years. NOTE: T-SCORE=SD OF THE YOUNG ADULT MEAN. [facility], , 07/31/2024 1:12 PM
--- NOTE | 2024-07-31 14:29 | MM ---
Reason for Exam: Screening (asymptomatic). Last mammogram was performed 2 year(s) and 0 month(s) ago. Patient History: Menarche at age 15. First Full-Term at age 21. Postmenopausal. 2002, Bilateral Benign Cyst Aspiration. Paternal aunt had breast cancer. Paternal aunt had breast cancer. Risk Values: Anaid 5 year model risk: 1.4%. NCI Lifetime model risk: 5.1%. Prior Study Comparison: 11/01/2017 Bilateral Screening Mammogram, [facility]. 09/23/2019 Bilateral Screening Mammogram, [facility]. 07/18/2022 Bilateral MG 3D screening mammo w/cad, [facility]. Tissue Density: The breasts are heterogeneously dense, which may obscure small masses. Findings: Analyzed By CAD. Unchanged areas of asymmetric density on the left. There is no suspicious group of microcalcifications or new suspicious mass in either breast. Overall Assessment: Benign, BI-RAD 2 Management: Screening Mammogram of both breasts in 1 year. Patient should continue monthly self-breast exams. A clinical breast exam by your physician is recommended on an annual basis. This exam should not preclude additional follow-up of suspicious palpable abnormalities. Note on Anaid scores and lifetime risk: 1. A Anaid score greater than 3% is considered moderate risk. If this is the case, consider specialist referral to assess eligibility for a risk reducing agent. 2. If overall lifetime risk for the development of breast cancer is 20% or higher, the patient may qualify for future screening with alternating mammogram and breast MRI. [facility], , 07/31/2024 2:26 PM. Electronically signed and approved by: Anthony Padron M.D. Radiologist
== END | disposition home or self-care (01) ==
LOC: RADMAMWWP 09:34
PROVIDERS: ATTEND Obstetrics & Gynecology
DX: Z12.31 Encounter for screening mammogram for malignant neoplasm of breast (principal); R92.333 Mammographic heterogeneous density, bilateral breasts; M85.89 Other specified disorders of bone density and structure, multiple sites; Z78.0 Asymptomatic menopausal state; Z80.3 Family history of malignant neoplasm of breast
CPT/HCPCS: 77063; 77067; 77080

== ENCOUNTER → 2024-08-14 | Outpatient (CLI) | payer MEDICARE ==
[2024-08-14 11:49] LABS: African American GFR (CKD) >90 (>60 ml/min/1.73 sqM); Blood Urea Nitrogen 8 mg/dL (7-17); Non-African American GFR(CKD) >90 (>60 ml/min/1.73 sqM)
--- NOTE | 2024-08-14 13:24 | CT ---
EXAMINATION TYPE: CT ChestAbdPelvis w con DATE OF EXAM: 08/14/2024 COMPARISON: 01/21/2024 CLINICAL INDICATION: Female, 64 years old with history of C83.[address] DLP: mGycm Automated exposure control for dose reduction was used. CONTRAST: CT scan of the chest, abdomen and pelvis is performed following IV contrast. FINDINGS: CT chest: There is no suspicious lung mass or nodule. There is no abnormal airspace/consolidative density or abnormal interstitial density. There is no pleural effusion, pleural thickening or pneumothorax. The great vessels and chest are normal there is no mediastinal, hilar or axillary adenopathy. No focal osseous lesions are seen. CT abdomen and pelvis: Gallbladder is normal without distention, pericholecystic fluid, wall thickening or gallstone. There is no biliary ductal dilatation. There is no focal mass or organomegaly involving the liver, pancreas, spleen or adrenal glands.. There is no solid renal mass or hydronephrosis. There is no retroperitoneal adenopathy or hemorrhage in the caliber of the abdominal aorta is normal. The bowel loops are normal in caliber and there is no dilatation or obstruction. No inflammatory scott ges identified in the bowel wall and mesentery. There is no free intracranial air or fluid. There is no pelvic mass or adenopathy. There is no free fluid within the pelvis. No focal osseous lesions are seen. Soft tissue the abdomen and pelvis are normal. IMPRESSION: No evidence of recurrent or metastatic disease. No significant interval change. [facility], , 08/14/2024 1:21 PM
== END | disposition home or self-care (01) ==
LOC: RADCTMAIN 11:02
PROVIDERS: ATTEND Internal Medicine Hematology & Oncology
DX: C83.18 Mantle cell lymphoma, lymph nodes of multiple sites (principal); M12.9 Arthropathy, unspecified; D64.9 Anemia, unspecified; E78.00 Pure hypercholesterolemia, unspecified
CPT/HCPCS: 82565; 84520; 71260; 74177; 36415; Q9967